=== PATIENT | female | born 1985 | race Caucasian/White ===

== ENCOUNTER 2016-05-08 11:11 | Emergency (ER) | payer OTHER, BC ==
[2016-05-08 11:35] VITALS: BP 100/65; PULSE 83; TEMP 98.1; BMI 25.6
[2016-05-08] MEDS ORDERED: DIPHTH,PERTUSS(ACELL),TET VAC 0.5 ML VIAL IM ONE (12:13)
--- NOTE | 2016-05-08 12:19 | PDOC ---
History of Present Illness - General Chief Complaint: Abrasion Stated Complaint: LT KNEE PAIN Time Seen by Provider: 05/08/16 12:04 History Source: Patient Exam Limitations: No Limitations - History of Present Illness Initial Comments: 05/08/16 12:14 31y F no pmhx presents with L knee pain. THe patient works for [employer], she was on the truck when it hit a few bumps and she got knocked off , and on the way to the ground, she clipped her b/l knees on the metal step. She landed on her feet, no falls/head injury or other complaints. denies head ache, neck pain, back pain, arm pain. pt endorses a abrasion to her L knee last tetenaus is unkonwn. Past History - Past Medical History Allergies/Adverse Reactions: Allergies Allergy/AdvReac Type Severity Reaction Status Date / Time Penicillins Allergy Verified 05/08/16 11:29 Home Medications: Ambulatory Orders Cholecalciferol (Vitamin D3) [Vitamin D3] 5,000 unit PO DAILY 07/23/15 Ranitidine HCl [Zantac] 150 mg PO DAILY #0 tablet 07/23/15 Asthma: Yes (NO ATTACK IN "YEARS") - Immunization History Td Vaccination: Yes Immunization Up to Date: Yes - Psycho/Social/Smoking Cessation Hx Anxiety: No Suicidal Ideation: No Smoking Status: No Smoking History: Former smoker Years of Tobacco Use: 0 Have you smoked in the past 12 months: No Number of Cigarettes Smoked Daily: 0 If you are a former smoker, when did you quit?: 3YEARS AGO Cigars Per Day: 0 Information on smoking cessation initiated: No Hx Alcohol Use: No Drug/Substance Use Hx: No Substance Use Type: None Hx Substance Use Treatment: No Review of Systems - Review of Systems Able to Perform ROS?: Yes Comments:: 05/08/16 12:17 Constitutional - no reported Fever, Chills, weakness, Musculskelatal - +L knee pain, mild R knee pain no reported back pain, joint swelling skin - + abrasion no reported bruising, erythema, rash neurological: no reported headache, numbness, focal weakness, tingling, ataxia, weakness hematologic: no reported anemia, easy bruising, easy bleeding Is the patient limited Kinyarwanda proficient: Yes *Physical Exam - Vital Signs Last Vital Signs Temp Pulse Resp BP Pulse Ox 98.1 F 83 19 100/65 98 05/08/16 11:31 05/08/16 11:31 05/08/16 11:31 05/08/16 11:31 05/08/16 11:31 - Physical Exam Comments: 05/08/16 12:18 Musculoskelatal: FROM of b/l shoulders, elbows, wrist. FROM of hips, knees, ankles - No signs of ecchymosis, erythema, or crepitus noted on palpation extremities, chest wall, clavicals, ribs, back. Minimal tenderness of L anterior knee and L proximal erickson, abrasion on anterior knee without active bleeding, superficial skin abrasion w/o bleeding of proximal erickson, minmal tenderness over that area. ED Treatment Course - RADIOLOGY Radiology Studies Ordered: Category Date Time Status KNEE 2 POS-LEFT [RAD] Stat Radiology 05/08/16 12:13 Ordered LEG TIB/FIB-LEFT [RAD] Stat Radiology 05/08/16 12:13 Ordered Medical Decision Making - Medical Decision Making 05/08/16 12:19 s/p fall mild tenderness of knee/erickson - will obtain xray to r/o fx will update tetanus pt declines tylenol no other injuries 05/08/16 13:21 xrays neagtive on my interpretation will d/c the pt with supportive management, bacitracin to her wounds return precautions wre discussed I discussed the physical exam findings, ancillary test results and final diagnoses with the patient. I answered all of the patient's questions. The patient was satisfied with the care received and felt comfortable with the discharge plan and treatment plan. The patient will call their primary care physician within 24 hours to arrange follow-up and will return to the Emergency Department with any new, persistent or worsening symptoms. *DC/Admit/Observation/Transfer Diagnosis at time of Disposition: Knee pain, left Qualifiers: Chronicity: acute Qualified Code(s): M25.562 - Pain in left knee Abrasion of knee Qualifiers: Encounter type: initial encounter Laterality: left Qualified Code(s): S80.212A - Abrasion, left knee, initial encounter - Discharge Dispostion Disposition: HOME Condition at time of disposition: Improved Admit: No - Referrals Referrals: STAFF,NOT ON [Primary Care Provider] - - Patient Instructions Printed Discharge Instructions: DI for Knee Pain, DI for Abrasion Additional Instructions: Return to the emergency department immediately with ANY new, persistent or worsening symptoms, watch for any redness/swelling. Put bacitracin on your wound twice daily. Clean gently with soap and water. You MUST call and follow up with your doctor tomorrow for further evaluation of your symptoms. Results were discussed with you. Please make sure your doctor reviews the results of your emergency evaluation. If you had any xrays during your visit, it was read preliminarily by myself, a Radiologist will review it and if there are any additional findings we will call you. Print Language: SPANISH
== END 2016-05-08 13:40 | disposition home or self-care (01) ==
LOC: JERFT 11:11 → JER 11:11
PROC: 3E0234Z Introduction of Serum, Toxoid and Vaccine into Muscle, Percutaneous Approach (ICD-10-PCS; principal; 2016-05-08)
DX: S80.212A Abrasion, left knee, initial encounter (principal); V68.6XXA Passenger in heavy transport vehicle injured in noncollision transport accident in traffic accident, initial encounter; Y92.414 Local residential or business street as the place of occurrence of the external cause; Y93.89 Activity, other specified; Y99.0 Civilian activity done for income or pay
CPT/HCPCS: 73560-TC-LT; 73560-TC-RT; 73590-TC-LT; 99282-25

== ENCOUNTER 2019-05-04 03:47 | Emergency (ER) | payer BC, OTHER ==
--- NOTE | 2019-05-04 04:52 | PDOC ---
Attending Attestation - Resident Resident Name: Dylan Ndiaye - ED Attending Attestation I have performed the following: I have examined & evaluated the patient, The case was reviewed & discussed with the resident, I agree w/resident's findings & plan - HPI HPI: 05/04/19 06:12 Pt comes with back pain. SHe states that she was [place] [employer] [place] and she tripped over boxes that were left out. She has low back pain and neck pain and she complains of left arm and left leg pain. She has no other complaints - Physicial Exam PE: 05/04/19 06:29 HEENT normal Heart [id number] abd soft NT ND Lungs CTAB no flank pain. Pt has left arm weakness and shakiness and left leg pain - Medical Decision Making 05/04/19 06:34 Pt will be treatd with lidoderm as well as flexeril. She doesn't want narcotics. 05/04/19 06:[address] scan of the c spine and L spine. T spine XR is pending. AM team will reevaluate the patient.
--- NOTE | 2019-05-04 05:09 | PDOC ---
History of Present Illness - General Stated Complaint: FALL (SUNDAY) Time Seen by Provider: 05/04/19 04:52 History Source: Patient Exam Limitations: No Limitations - History of Present Illness Initial Comments: 05/04/19 06:38 34 yo F with a hx of L4-5 fusion (with residual left UE and LE weakness) and asthma presents to the emergency department with acute on chronic back pain s/p fall [place] [employer] [place] 05[place]02/2019. Per the patient, she was in the supermarket and tripped over boxes left on the ground, landing on her back. She denies hitting her head and LOC. Per the patient, she tried to wait it off the pain and used meloxicam yesterday without relief. Currently, she is having pain in the middle of her lower back and worsening of her weakness on the left UE and LE. Past History - Past Medical History Allergies/Adverse Reactions: Allergies Allergy/AdvReac Type Severity Reaction Status Date / Time Penicillins Allergy Verified 05/08/16 11:29 Home Medications: Ambulatory Orders Cyclobenzaprine HCl 5 mg PO DAILY 05/04/19 Meloxicam [Mobic] 15 mg PO DAILY 05/04/19 Asthma: Yes (NO ATTACK IN "YEARS") - Immunization History Td Vaccination: Yes Immunization Up to Date: Yes - Psycho Social/Smoking Cessation Hx Smoking Status: No Smoking History: Former smoker Years of Tobacco Use: 0 Have you smoked in the past 12 months: No Number of Cigarettes Smoked Daily: 0 If you are a former smoker, when did you quit?: 3YEARS AGO Cigars Per Day: 0 Hx Alcohol Use: No Drug/Substance Use Hx: No Substance Use Type: None Hx Substance Use Treatment: No Review of Systems - Review of Systems Able to Perform ROS?: Yes Is the patient limited Polish proficient: No Constitutional: Yes: Weakness. No: Chills, Diaphoresis, Fever HEENTM: No: Eye Pain, Ear Pain, Nose Pain, Throat Pain, Mouth Pain Respiratory: No: Cough, Shortness of Breath, Hemoptysis Cardiac (ROS): No: Chest Pain, Lightheadedness, Palpitations, Syncope, Chest Tightness ABD/GI: No: Constipated, Diarrhea, Nausea, Rectal Bleeding, Vomiting, Tarry Stools : No: Burning, Dysuria, Hematuria Musculoskeletal: Yes: Back Pain. No: Joint Pain, Neck Pain Integumentary: No: Bruising, Erythema, Rash Neurological: No: Headache, Numbness, Tingling, Tremors Psychiatric: No: Change in Appetite Endocrine: No: Unexplained Weight Loss Hematologic/Lymphatic: No: Anemia *Physical Exam - Physical Exam General Appearance: Yes: Nourished, Appropriately Dressed. No: Apparent Distress, Intoxicated HEENT: positive: EOMI, GIOVANNA, Normal Voice, Symmetrical, Pharynx Normal, Hearing Grossly Normal. negative: Pale Conjunctivae, Scleral Icterus (R), Scleral Icterus (L), Muffled/Hoarse voice, Pharyngeal Erythema, Tonsillar Exudate, Tonsillar Erythema, Nasal Congestion, Rhinorrhea, Sinus Tenderness, Excessive drooling Neck: positive: Trachea midline, Supple, Tender lateral (paraspinal process of C5-C7), Tender midline (midline tenderness from C5-C7). negative: Lymphadenopathy (R), Lymphadenopathy (L) Respiratory/Chest: positive: Lungs Clear, Normal Breath Sounds. negative: Chest Tender, Respiratory Distress, Accessory Muscle Use, Crackles, Rales, Rhonchi, Stridor, Wheezing Cardiovascular: positive: Regular Rhythm, Regular Rate, S1, S2. negative: Systolic Murmur Gastrointestinal/Abdominal: positive: Normal Bowel Sounds, Flat, Soft. negative : Tender, Distended, Guarding, Rebound Lymphatic: negative: Adenopathy Musculoskeletal: positive: Normal Inspection, Vertebral Tenderness (L1-L5 midline tenderness. Tenderness to palpation in the paraspinal process from L1-L5 ). negative: CVA Tenderness Extremity: positive: Normal Capillary Refill, Normal Range of Motion. negative : Normal Inspection (chronic atrophy of the left leg most notable in the gastroc ), Tender, Swelling, Calf Tenderness, Erythema, Inflammation Integumentary: positive: Normal Color, Dry, Warm. 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 negative: Motor Strength 5/5 (4/5 strength in the left leg for hip flexion, hip extension, knee flexion, and knee extension. Intact patellar reflexes bilaterally) Medical Decision Making - Medical Decision Making 34 yo F with a hx of L4-5 fusion (with residual left UE and LE weakness) and asthma presents to the emergency department with acute on chronic back pain s/p fall at a [employer] on 05/02/2019. Initial vitals: Initial Vital Signs Temp Pulse Resp BP Pulse Ox 98.2 F 80 18 100/73 99 05/04/19 04:00 05/04/19 04:00 05/04/19 04:00 05/04/19 04:00 05/04/19 04:00 Work up: ddx: patient presents with acute on chronic back pain secondary to fall. on physical examination, patient has atrophy of the left leg per the patient is chronic. However, she described worsening muscle weakness in the left UE and LE s/p fall. In addition, the patient denies urinary and bowel incontinence POCUS shows 129 cc of volume in the bladder. Will provide lidoderm and flexeril (per patient request to avoid narcotics) to help with pain management. Will obtain imaging of the cervical and lumbar spine via CT to ascertain fractures. Will obtain thoracic xray Patient was signed out to day team. Discharge - Discharge Information Problems reviewed: Yes Clinical Impression/Diagnosis: Fall, Shoulder pain Back pain Qualifiers: Back pain location: low back pain Chronicity: chronic Back pain laterality: unspecified Sciatica presence: without sciatica Qualified Code(s): M54.5 - Low back pain - Follow up/Referral Referrals: Rodney Harris MD, FAANS [Staff Physician] - Lenny Navarro DO [Staff Physician] - - Patient Discharge Instructions Patient Printed Discharge Instructions: DI for Low Back Pain Additional Instructions: Discharge Instructions: You were seen in the emergency department for back pain. Your CT scans showed that you may need revision of your previous back surgery. Please see your orthopedic surgeon as soon as possible. Home Care and Follow Up: - Continue to use your home meloxicam as prescribed. - You may also take 650-1000mg acetaminophen (Tylenol) every 6-8 hours for continued pain. This is safe to use with meloxicam. - You may buy a numbing patch that contains lidocaine (the patch is 4% lidocaine ) that can be placed over the areas of greatest pain. The lidocaine patch may be placed for 12 hours then removed for 12 hours. - Try using an ice pack for 20 minutes every hour or a heating pad for additional pain control. These should NOT be used over the lidocaine patch, but you may place them over the areas of pain while the patch is off. - Do not stop moving around. As much as you can tolerate, continue to do light exercise and stretching exercises. Increase your activity level as much as you can tolerate daily. - See your orthopedic surgeon within the next week for follow up. If you need a new surgeon, you have been given contact information for Dr Harris. - Seek immediate medical care if you have significant worsening of your symptoms , you have new leg weakness, you have urinary or bowel incontinence, you have numbness in your buttocks, you are unable to walk, or you have any other medical emergency. - Post Discharge Activity
[2019-05-04] MEDS ORDERED: LIDOCAINE 5% TOPICAL PATCH TP ONE (05:12)
[2019-05-04] MEDS ORDERED: CYCLOBENZAPRINE HCL 5 MG TABLET PO ONE (05:12)
[2019-05-04 06:05] VITALS: TEMP 98.2; BMI 28.1
[2019-05-04] MEDS ORDERED: CYCLOBENZAPRINE HCL 10 MG TABLET (FP) ONE (06:08)
[2019-05-04] MEDS ORDERED: LIDOCAINE 5% TOPICAL PATCH ONE (06:09)
--- NOTE | 2019-05-04 07:11 | PDOC ---
*Physical Exam - Vital Signs Last Vital Signs Temp Pulse Resp BP Pulse Ox 98.2 F 80 18 100/73 99 05/04/19 04:00 05/04/19 04:00 05/04/19 04:00 05/04/19 04:00 05/04/19 04:00 - Physical Exam 05/04/19 08:47 gen: aaox3, nad, sitting up heart: +s1s2 reg lungs: cta b/l abd: soft, nt/nd +bs ext: no c/c/e, pt ambulates with a limp-does wear a leg brace and was walking witout the brace c/t/l spine: no midline ttp, paraspinal ttp, no cva ttp, no stepoffs or deformities 05/04/19 08:52 pt with FROM of [facility] shoulder ED Treatment Course - Medications Given in the ED: ED Medications Discontinued Medications Generic Name Dose Route Start Last Admin Trade Name Freq PRN Reason Stop Dose Admin Cyclobenzaprine HCl 5 mg 05/04/19 05:12 05/04/19 06:00 Cyclobenzaprine Hcl PO 05/04/19 05:13 5 mg ONCE ONE Administration Lidocaine 1 patch 05/04/19 05:12 05/04/19 06:00 Lidoderm Patch - TP 05/04/19 05:13 1 patch ONCE ONE Administration Medical Decision Making - Medical Decision Making 05/04/19 07:08 a/p: 34yo female s/p fall on sunday -pt signed out from the prior team pending labs, imaging and further eval 05/04/19 07:30 urine preg neg 05/04/19 08:50 ct does not show acute injury , there is some bone breakdown around the hardware in low back this was discussed and a copy of [facility] imaging/report were given to the patient for follow up with ortho spine pt understands all instructions states she feels better after flexeril and lidoderm stable for dc to home and follow up with ortho spine at [facility] Discharge - Discharge Information Problems reviewed: Yes Clinical Impression/Diagnosis: Fall, Shoulder pain Back pain Qualifiers: Back pain location: low back pain Chronicity: chronic Back pain laterality: unspecified Sciatica presence: without sciatica Qualified Code(s): M54.5 - Low back pain Condition: Stable Disposition: HOME - Admission No - Follow up/Referral Referrals: Lenny Navarro DO [Staff Physician] - - Patient Discharge Instructions - Post Discharge Activity
--- NOTE | 2019-05-04 07:15 | PDOC ---
*Physical Exam - Vital Signs Last Vital Signs Temp Pulse Resp BP Pulse Ox 98.2 F 80 18 100/73 99 05/04/19 04:00 05/04/19 04:00 05/04/19 04:00 05/04/19 04:00 05/04/19 04:00 ED Treatment Course - Medications Given in the ED: ED Medications Discontinued Medications Generic Name Dose Route Start Last Admin Trade Name Oz PRN Reason Stop Dose Admin Cyclobenzaprine HCl 5 mg 05/04/19 05:12 05/04/19 06:00 Cyclobenzaprine Hcl PO 05/04/19 05:13 5 mg ONCE ONE Administration Lidocaine 1 patch 05/04/19 05:12 05/04/19 06:00 Lidoderm Patch - TP 05/04/19 05:13 1 patch ONCE ONE Administration Medical Decision Making - Medical Decision Making 05/04/19 07:13 Sign out received from Dr Ndiaye. Shelby Avendaño is a 34yo woman with a PMH of asthma, L4-5 fusion with residual LUE and LLE weakness who presented overnight with acute on chronic back pain after falling on 05/02/19. ED course so far notable for: - Flexeril and lidocaine patch given for pain - CT L and C-spine completed, pending - Thoracic xrays to be completed 05/04/19 08:43 - CT's completed. No acute injury, but notes loosening of the surgical hardware and bone breakdown. Pt updated, will see her orthopedic surgeon this week. Pt provided with copies of the images. - Thoracic xrays without acute abnormalities seen on ED read - Will d/c home with ortho follow up pending final xray report Discussed with Dr Álvaro Shearer PGY2 Discharge - Discharge Information Problems reviewed: Yes Clinical Impression/Diagnosis: Fall, Shoulder pain Back pain Qualifiers: Back pain location: low back pain Chronicity: chronic Back pain laterality: unspecified Sciatica presence: without sciatica Qualified Code(s): M54.5 - Low back pain Condition: Stable Disposition: HOME - Admission No - Follow up/Referral Referrals: Rodney Harris MD, FAANS [Staff Physician] - Lenny Navaror DO [Staff Physician] - - Patient Discharge Instructions Patient Printed Discharge Instructions: DI for Low Back Pain Additional Instructions: Discharge Instructions: You were seen in the emergency department for back pain. Your CT scans showed that you may need revision of your previous back surgery. Please see your orthopedic surgeon as soon as possible. Home Care and Follow Up: - Continue to use your home meloxicam as prescribed. - You may also take 650-1000mg acetaminophen (Tylenol) every 6-8 hours for continued pain. This is safe to use with meloxicam. - You may buy a numbing patch that contains lidocaine (the patch is 4% lidocaine ) that can be placed over the areas of greatest pain. The lidocaine patch may be placed for 12 hours then removed for 12 hours. - Try using an ice pack for 20 minutes every hour or a heating pad for additional pain control. These should NOT be used over the lidocaine patch, but you may place them over the areas of pain while the patch is off. - Do not stop moving around. As much as you can tolerate, continue to do light exercise and stretching exercises. Increase your activity level as much as you can tolerate daily. - See your orthopedic surgeon within the next week for follow up. If you need a new surgeon, you have been given contact information for Dr Harris. - Seek immediate medical care if you have significant worsening of your symptoms , you have new leg weakness, you have urinary or bowel incontinence, you have numbness in your buttocks, you are unable to walk, or you have any other medical emergency. - Post Discharge Activity
[2019-05-04] MEDS ORDERED: IBUPROFEN 600 MG TABLET (FP) PO ONE (08:39)
[2019-05-04] MEDS ORDERED: KETOROLAC TROMETHAMINE 60 MG/2 ML VIAL IM ONE (08:45)
[2019-05-04] MEDS ORDERED: KETOROLAC TROMETHAMINE 60 MG/2 ML VIAL ONE (08:59)
[2019-05-04 09:45] VITALS: BP 101/82; PULSE 85
[2019-05-04] MEDS ORDERED: LIDOCAINE PATCH REMOVAL MC SCH (22:00)
== END 2019-05-04 09:45 | disposition home or self-care (01) ==
LOC: JER 03:47
PROC: 3E0233Z Introduction of Anti-inflammatory into Muscle, Percutaneous Approach (ICD-10-PCS; principal; 2019-05-04)
DX: M54.5 Low back pain (principal); M25.512 Pain in left shoulder; W18.39XA Other fall on same level, initial encounter; Y93.89 Activity, other specified; Y92.512 Supermarket, store or market as the place of occurrence of the external cause; Y99.8 Other external cause status; M62.569 Muscle wasting and atrophy, not elsewhere classified, unspecified lower leg; Z98.1 Arthrodesis status; Z88.0 Allergy status to penicillin
CPT/HCPCS: 36415; 72070-TC-FY; 72125-TC; 72131-TC; 84703; 99282-25

== ENCOUNTER 2021-09-20 13:17 | Inpatient (IN) | payer BC ==
[2021-09-20] MEDS ORDERED: morphine CARPU-JECT 4 MG/1 ML DISP.SYRIN IVPUSH ONE (14:28)
[2021-09-20] MEDS ORDERED: methylPREDNISolone NA SUCC 125 MG/2 ML VIAL IVPB ONE (14:35)
[2021-09-20 15:53] LABS: EOS % 2.7 % (0-4.5); HEMATOCRIT 41.1 % (32.4-45.2); HEMOGLOBIN 13.9 GM/dL (10.7-15.3); LYMPH % 30.1 % (8-40); MCH 28.9 pg (25.7-33.7); MCHC 33.8 g/dl (32.0-36.0); MEAN CELL VOLUME 85.5 fl (80-96); MEAN PLT VOLUME 7.8 fl (7.5-11.1); MONO % 5.9 % (3.8-10.2); NEUT % 60.3 % (42.8-82.8); PLATELET COUNT 294 10^3/uL (134-434); RBC 4.81 M/mm3 (3.60-5.2); RDW 13.1 % (11.6-15.6); WHITE BLOOD COUNT 6.4 K/mm3 (4.0-10.0)
[2021-09-20 16:03] LABS: INR 1.03 (0.83-1.09); PROTHROMBIN TIME (PATIENT) 11.9 SEC (9.7-13.0)
[2021-09-20 16:11] LABS: CHLORIDE 102 mmol/L (98-107); SODIUM 136 mmol/L (136-145)
[2021-09-20 16:13] LABS: CALCIUM 9.3 mg/dL (8.5-10.1); GLUCOSE,RANDOM 74 mg/dL (74-106)
[2021-09-20 16:14] LABS: ALBUMIN 4.2 g/dl (3.4-5.0); BLOOD UREA NITROGEN 8.4 mg/dL (7-18); CO2 29 mmol/L (21-32)
[2021-09-20 16:16] LABS: SGPT/ALT 41 U/L (13-61)
[2021-09-20 16:17] LABS: CREATININE 0.9 mg/dL (0.55-1.3); SGOT/AST 60 U/L (15-37)
[2021-09-20 16:18] LABS: BILIRUBIN,TOTAL 1.1 mg/dL (0.2-1); TOT PROT 8.8 g/dl (6.4-8.2)
[2021-09-20 16:19] LABS: ALK PHOS 77 U/L (45-117)
[2021-09-20 16:24] LABS: ANION GAP 5 MMOL/L (8-16)
[2021-09-20 16:34] LABS: ERYTHROCYTE SEDIMENTATION RATE 14 mm/hr (0-20)
[2021-09-20 18:30] LABS: EPI CELLS 8 /uL (0-25.1); HCG,QUALITATIVE URINE Negative; HYALINE CASTS 1 /uL (0-3.1); URINE APPEARANCE CLEAR; URINE BACTERIA 359 /uL (0-1359); URINE BILIRUBIN NEGATIVE (NEGATIVE); URINE COLOR YELLOW; URINE GLUCOSE (UA) NEGATIVE (NEGATIVE); URINE KETONE TRACE (NEGATIVE); URINE LEUK ESTERASE NEGATIVE (NEGATIVE); URINE NITRITE NEGATIVE (NEGATIVE); URINE PROTEIN NEGATIVE (NEGATIVE); URINE RBC 7 /uL (0-23.9); URINE UROBILINOGEN 0.2 mg/dL (0.2-1.0); URINE WBC 7 /uL (0-25.8)
[2021-09-20 19:01] LABS: ALBUMIN 3.9 g/dl (3.4-5.0); BLOOD UREA NITROGEN 9.1 mg/dL (7-18)
[2021-09-20 19:05] LABS: CREATININE 0.8 mg/dL (0.55-1.3)
[2021-09-20 19:06] LABS: BILIRUBIN,TOTAL 0.8 mg/dL (0.2-1); TOT PROT 7.6 g/dl (6.4-8.2)
[2021-09-20] MEDS ORDERED: KETOROLAC TROMETHAMINE 30 MG/1 ML VIAL IVPUSH ONE (20:37)
[2021-09-20] MEDS ORDERED: morphine CARPU-JECT 2 MG/1 ML DISP.SYRIN IVPUSH ONE (20:38)
[2021-09-20] MEDS ORDERED: KETOROLAC TROMETHAMINE 30 MG/1 ML VIAL ONE (22:50)
[2021-09-21] MEDS ORDERED: ENOXAPARIN NA (PORCINE) 40 MG/0.4 ML DISP.SYRIN SQ ONE (10:15)
[2021-09-21] MEDS: ENOXAPARIN NA (PORCINE) 40 MG/0.4 ML DISP.SYRIN SQ SCH (10:25)
[2021-09-21] MEDS ORDERED: methylPREDNISolone NA SUCC 125 MG/2 ML VIAL IVPB ONE (17:28)
[2021-09-21 18:01] VITALS: BMI 28.9
[2021-09-22 08:40] LABS: BASO % 0.7 % (0-2.0); EOS % 2.7 % (0-4.5); HEMATOCRIT 35.4 % (32.4-45.2); HEMOGLOBIN 12.2 GM/dL (10.7-15.3); LYMPH % 40.5 % (8-40); MCH 29.3 pg (25.7-33.7); MCHC 34.4 g/dl (32.0-36.0); MEAN PLT VOLUME 7.7 fl (7.5-11.1); MONO % 7.2 % (3.8-10.2); NEUT % 48.9 % (42.8-82.8); PLATELET COUNT 260 10^3/uL (134-434); RBC 4.16 M/mm3 (3.60-5.2); WHITE BLOOD COUNT 5.9 K/mm3 (4.0-10.0)
[2021-09-22 08:58] LABS: ALBUMIN 3.3 g/dl (3.4-5.0); BLOOD UREA NITROGEN 14.1 mg/dL (7-18); CALCIUM 8.7 mg/dL (8.5-10.1)
[2021-09-22 08:59] LABS: MAGNESIUM 2.1 mg/dL (1.8-2.4)
[2021-09-22 09:01] LABS: CREATININE 0.7 mg/dL (0.55-1.3)
[2021-09-22 09:03] LABS: TOT PROT 6.6 g/dl (6.4-8.2)
[2021-09-22] MEDS: ENOXAPARIN NA (PORCINE) 40 MG/0.4 ML DISP.SYRIN SQ SCH (09:31)
[2021-09-22] MEDS: GABAPENTIN 300 MG CAPSULE PO SCH ×2 (10:10→21:08)
[2021-09-22] MEDS: ACETAMINOPHEN 325 MG TABLET (FP) PO PRN ×2 (10:10→14:56)
[2021-09-22] MEDS: oxyCODONE HCL 5 MG TABLET PO PRN ×3 (10:11→21:29)
[2021-09-22] MEDS: methylPREDNISolone NA SUCC 125 MG/2 ML VIAL IVPUSH SCH ×2 (11:47→21:08)
[2021-09-22] MEDS: FAMOTIDINE 20 MG TABLET PO SCH (11:48)
[2021-09-22] MEDS: CYCLOBENZAPRINE HCL 5 MG TABLET PO PRN ×2 (14:55→21:29)
[2021-09-23] MEDS: FAMOTIDINE 20 MG TABLET PO SCH (09:01)
[2021-09-23] MEDS: ENOXAPARIN NA (PORCINE) 40 MG/0.4 ML DISP.SYRIN SQ SCH (09:01)
[2021-09-23] MEDS: GABAPENTIN 300 MG CAPSULE PO SCH ×2 (09:01→22:26)
[2021-09-23] MEDS: methylPREDNISolone NA SUCC 125 MG/2 ML VIAL IVPUSH SCH ×2 (09:01→22:26)
[2021-09-23] MEDS ORDERED: VANCOMYCIN 1,000 MG VIAL (RESTRICTED TO ID ONLY) ONE (09:40)
[2021-09-23] MEDS ORDERED: THROMBIN (BOVINE) 20,000 UNIT VIAL TP ONE (09:40)
[2021-09-23] MEDS ORDERED: GENTAMICIN SO4 80 MG/2 ML VIAL ONE (09:41)
[2021-09-23] MEDS ORDERED: LIDOCAINE 1%/EPI 1:100000 (20 ML MULTI DOSE VIAL) ONE (09:41)
[2021-09-23] MEDS ORDERED: BUPIVACAINE HCL/PF 0.5% (5MG/ML) 10 ML VIAL ONE (09:41)
[2021-09-23] MEDS ORDERED: BUPIVACAINE LIPOSOME/PF (EXPAREL) 266 MG/20 ML VIAL ONE (09:42)
[2021-09-23] MEDS ORDERED: MIDAZOLAM HCL 2 MG/2 ML SINGLE DOSE VIAL ONE (09:50)
[2021-09-23] MEDS ORDERED: PROPOFOL 20 ML ONE (09:50)
[2021-09-23] MEDS ORDERED: LIDOCAINE HCL/PF 2% SDV 5ML VIAL ONE (09:50)
[2021-09-23] MEDS ORDERED: ROCURONIUM BROMIDE 50 MG/5 ML SYRINGE ONE ×2 (09:50→11:16)
[2021-09-23] MEDS ORDERED: SUCCINYLCHOLINE CHLORIDE 200 MG/10 ML SYRINGE ONE (10:14)
[2021-09-23] MEDS ORDERED: ONDANSETRON 4 MG/2 ML VIAL IVPUSH PRN ×3 (10:22→16:13)
[2021-09-23] MEDS ORDERED: PROMETHAZINE HCL 25 MG/1 ML VIAL IVPUSH PRN (10:22)
[2021-09-23] MEDS ORDERED: DEXMEDETOMIDINE HCL 200 MCG/2 ML IVPB ONE (10:25)
[2021-09-23] MEDS ORDERED: LACTATED RINGERS SOLUTION 1,000 ML IV SCH (10:30)
[2021-09-23] MEDS ORDERED: ceFAZolin SODIUM 1 GM VIAL IVPB ONE ×3 (11:12→17:30)
[2021-09-23] MEDS ORDERED: VANCOMYCIN 1,000 MG VIAL (RESTRICTED TO ID ONLY) IVPB ONE ×3 (11:12→11:42)
[2021-09-23] MEDS ORDERED: LIDOCAINE 1%/EPI 1:100000 (20 ML MULTI DOSE VIAL) IJ ONE (11:28)
[2021-09-23] MEDS ORDERED: KETAMINE HCL 200 MG/20 ML VIAL ONE (11:39)
[2021-09-23] MEDS ORDERED: GENTAMICIN 80MG PREMIX BAG IVPB ONE (11:43)
[2021-09-23] MEDS ORDERED: HYDROGEN PEROXIDE 473 ML PO ONE (11:44)
[2021-09-23] MEDS ORDERED: HYDROmorphone HCl 2 MG/ML VIAL ONE (11:45)
[2021-09-23] MEDS ORDERED: diphenhydrAMINE HCL 25 MG CAPSULE (FP) PO PRN (14:44)
[2021-09-23] MEDS ORDERED: NALOXONE HCL 0.4 MG/ML VIAL IVPUSH PRN (14:47)
[2021-09-23] MEDS ORDERED: NEOSTIGMINE METHYLSULFATE 0.5 MG/1 ML - 10 ML MDV ONE (14:52)
[2021-09-23] MEDS ORDERED: BUPIVACAINE HCL/PF 0.5% (5 MG/ML) 30 ML VIAL IJ ONE (15:00)
[2021-09-23] MEDS ORDERED: BUPIVACAINE LIPOSOME/PF (EXPAREL) 266 MG/20 ML VIAL NR ONE (15:00)
[2021-09-23] MEDS ORDERED: GLYCOPYRROLATE 0.2 MG/1 ML VIAL ONE (15:44)
[2021-09-23] MEDS ORDERED: morphine SULFATE/PF 1 MG/2 ML (2cc Syringe - QUVA) EP ONE (16:13)
[2021-09-23] MEDS ORDERED: ceFAZolin SODIUM 1 GM VIAL ONE (17:18)
[2021-09-23] MEDS: CEFAZOLIN 1 GM in DEXTROSE 5%-WATER - 1 GM/50 ML IVPB IVPB SCH (19:22)
[2021-09-23] MEDS: HEPARIN NA (PORCINE) 5,000 UNITS/ML 1ML VIAL SQ SCH (22:25)
[2021-09-23] MEDS: ACETAMINOPHEN 325 MG TABLET (FP) PO SCH (22:25)
[2021-09-23] MEDS: DOCUSATE SODIUM 100 MG CAPSULE (FP) PO SCH (22:25)
[2021-09-24] MEDS ORDERED: ceFAZolin SODIUM 1 GM VIAL ONE ×3 (01:32→17:22)
[2021-09-24] MEDS ORDERED: DEXTROSE 5%-WATER - 50 ML IVPB ONE ×3 (01:33→17:22)
[2021-09-24] MEDS: CEFAZOLIN 1 GM in DEXTROSE 5%-WATER - 1 GM/50 ML IVPB IVPB SCH ×3 (01:49→17:34)
[2021-09-24] MEDS: ACETAMINOPHEN 325 MG TABLET (FP) PO SCH ×5 (03:35→21:41)
[2021-09-24] MEDS: DOCUSATE SODIUM 100 MG CAPSULE (FP) PO SCH ×3 (05:59→21:40)
[2021-09-24] MEDS: HEPARIN NA (PORCINE) 5,000 UNITS/ML 1ML VIAL SQ SCH ×3 (06:00→21:37)
[2021-09-24] MEDS: CYCLOBENZAPRINE HCL 5 MG TABLET PO PRN (08:07)
[2021-09-24 08:45] LABS: HEMATOCRIT 33.1 % (32.4-45.2); HEMOGLOBIN 11.3 GM/dL (10.7-15.3); MCH 29.1 pg (25.7-33.7); MEAN CELL VOLUME 85.5 fl (80-96); MEAN PLT VOLUME 7.8 fl (7.5-11.1); PLATELET COUNT 250 10^3/uL (134-434); RBC 3.87 M/mm3 (3.60-5.2); RDW 13.4 % (11.6-15.6); WHITE BLOOD COUNT 14.6 K/mm3 (4.0-10.0)
[2021-09-24] MEDS: FERROUS SO4 325 MG TABLET (FP) PO SCH (08:45)
[2021-09-24 09:14] LABS: ALBUMIN 3.4 g/dl (3.4-5.0); BLOOD UREA NITROGEN 11.9 mg/dL (7-18)
[2021-09-24 09:17] LABS: CREATININE 0.8 mg/dL (0.55-1.3)
[2021-09-24 09:18] LABS: TOT PROT 6.5 g/dl (6.4-8.2)
[2021-09-24 09:19] LABS: BILIRUBIN,TOTAL 0.4 mg/dL (0.2-1)
[2021-09-24 09:22] LABS: ANISOCYTOSIS 0; MACROCYTOSIS 0
[2021-09-24] MEDS: methylPREDNISolone NA SUCC 125 MG/2 ML VIAL IVPUSH SCH ×2 (09:42→21:35)
[2021-09-24] MEDS: GABAPENTIN 300 MG CAPSULE PO SCH ×2 (09:42→21:40)
[2021-09-24] MEDS: FAMOTIDINE 20 MG TABLET PO SCH (09:42)
[2021-09-24] MEDS: FOLIC ACID 1 MG TABLET (FP) PO SCH (09:42)
[2021-09-24] MEDS: oxyCODONE HCL 5 MG TABLET PO PRN (10:30)
[2021-09-24] MEDS ORDERED: oxyCODONE HCL 5 MG TABLET PO PRN (10:30)
[2021-09-24] MEDS: oxyCODONE HCL 10 MG SUSTAINED ACTING TABLET PO SCH ×2 (16:14→21:41)
[2021-09-25] MEDS ORDERED: DEXTROSE 5%-WATER - 50 ML IVPB ONE ×3 (01:26→17:19)
[2021-09-25] MEDS ORDERED: ceFAZolin SODIUM 1 GM VIAL ONE ×3 (01:26→17:19)
[2021-09-25] MEDS: ACETAMINOPHEN 325 MG TABLET (FP) PO SCH ×4 (02:33→20:33)
[2021-09-25] MEDS: CEFAZOLIN 1 GM in DEXTROSE 5%-WATER - 1 GM/50 ML IVPB IVPB SCH ×3 (02:33→17:30)
[2021-09-25] MEDS: HEPARIN NA (PORCINE) 5,000 UNITS/ML 1ML VIAL SQ SCH ×3 (06:38→22:42)
[2021-09-25] MEDS: DOCUSATE SODIUM 100 MG CAPSULE (FP) PO SCH ×3 (06:38→22:42)
[2021-09-25 07:36] LABS: BASO % 0.1 % (0-2.0); HEMATOCRIT 31.4 % (32.4-45.2); HEMOGLOBIN 10.9 GM/dL (10.7-15.3); LYMPH % 6.7 % (8-40); MCH 29.8 pg (25.7-33.7); MCHC 34.9 g/dl (32.0-36.0); MEAN CELL VOLUME 85.6 fl (80-96); MEAN PLT VOLUME 8.4 fl (7.5-11.1); MONO % 2.6 % (3.8-10.2); NEUT % 90.6 % (42.8-82.8); PLATELET COUNT 255 10^3/uL (134-434); RBC 3.67 M/mm3 (3.60-5.2); RDW 13.4 % (11.6-15.6); WHITE BLOOD COUNT 11.3 K/mm3 (4.0-10.0)
[2021-09-25 08:00] LABS: ALBUMIN 3.3 g/dl (3.4-5.0)
[2021-09-25 08:03] LABS: CALCIUM 8.9 mg/dL (8.5-10.1); CREATININE 0.7 mg/dL (0.55-1.3)
[2021-09-25 08:04] LABS: TOT PROT 6.3 g/dl (6.4-8.2)
[2021-09-25 08:06] LABS: BILIRUBIN,TOTAL 0.6 mg/dL (0.2-1)
[2021-09-25] MEDS: oxyCODONE HCL 10 MG SUSTAINED ACTING TABLET PO SCH ×2 (09:43→22:43)
[2021-09-25] MEDS: FERROUS SO4 325 MG TABLET (FP) PO SCH (09:43)
[2021-09-25] MEDS: FOLIC ACID 1 MG TABLET (FP) PO SCH (09:43)
[2021-09-25] MEDS: GABAPENTIN 300 MG CAPSULE PO SCH ×2 (09:45→22:42)
[2021-09-25] MEDS: methylPREDNISolone NA SUCC 125 MG/2 ML VIAL IVPUSH SCH ×2 (09:46→22:44)
[2021-09-25] MEDS: FAMOTIDINE 20 MG TABLET PO SCH (09:55)
[2021-09-25] MEDS: CYCLOBENZAPRINE HCL 5 MG TABLET PO PRN (19:35)
[2021-09-25] MEDS: oxyCODONE HCL 5 MG TABLET PO PRN (19:50)
[2021-09-25] MEDS ORDERED: morphine SULFATE 4 MG/ML VIAL ONE (21:24)
[2021-09-25] MEDS ORDERED: morphine SULFATE 4 MG/ML VIAL IVPUSH ONE (21:24)
[2021-09-26] MEDS ORDERED: DEXTROSE 5%-WATER - 50 ML IVPB ONE ×3 (02:20→18:08)
[2021-09-26] MEDS ORDERED: ceFAZolin SODIUM 1 GM VIAL ONE ×3 (02:20→18:08)
[2021-09-26] MEDS: CEFAZOLIN 1 GM in DEXTROSE 5%-WATER - 1 GM/50 ML IVPB IVPB SCH ×3 (02:25→18:40)
[2021-09-26] MEDS: ACETAMINOPHEN 325 MG TABLET (FP) PO SCH ×4 (02:27→20:10)
[2021-09-26] MEDS: DOCUSATE SODIUM 100 MG CAPSULE (FP) PO SCH ×3 (05:58→21:47)
[2021-09-26] MEDS: HEPARIN NA (PORCINE) 5,000 UNITS/ML 1ML VIAL SQ SCH ×3 (05:58→21:47)
[2021-09-26] MEDS: oxyCODONE HCL 5 MG TABLET PO PRN ×3 (06:38→17:50)
[2021-09-26] MEDS: FERROUS SO4 325 MG TABLET (FP) PO SCH (08:10)
[2021-09-26 08:19] LABS: BASO % 0.1 % (0-2.0); HEMATOCRIT 32.9 % (32.4-45.2); HEMOGLOBIN 11.4 GM/dL (10.7-15.3); MCH 29.6 pg (25.7-33.7); MCHC 34.6 g/dl (32.0-36.0); MEAN CELL VOLUME 85.4 fl (80-96); MEAN PLT VOLUME 7.8 fl (7.5-11.1); MONO % 2.7 % (3.8-10.2); NEUT % 87.2 % (42.8-82.8); PLATELET COUNT 269 10^3/uL (134-434); RBC 3.85 M/mm3 (3.60-5.2); RDW 13.2 % (11.6-15.6); WHITE BLOOD COUNT 9.1 K/mm3 (4.0-10.0)
[2021-09-26 09:32] LABS: CALCIUM 8.9 mg/dL (8.5-10.1)
[2021-09-26] MEDS: FOLIC ACID 1 MG TABLET (FP) PO SCH (09:32)
[2021-09-26] MEDS: FAMOTIDINE 20 MG TABLET PO SCH (09:32)
[2021-09-26] MEDS: GABAPENTIN 300 MG CAPSULE PO SCH ×2 (09:32→21:20)
[2021-09-26] MEDS: oxyCODONE HCL 10 MG SUSTAINED ACTING TABLET PO SCH ×2 (09:32→21:19)
[2021-09-26 09:33] LABS: ALBUMIN 3.3 g/dl (3.4-5.0); BLOOD UREA NITROGEN 12.5 mg/dL (7-18)
[2021-09-26] MEDS: methylPREDNISolone NA SUCC 125 MG/2 ML VIAL IVPUSH SCH ×2 (09:33→21:21)
[2021-09-26 09:36] LABS: CREATININE 0.7 mg/dL (0.55-1.3)
[2021-09-26 09:37] LABS: TOT PROT 6.5 g/dl (6.4-8.2)
[2021-09-26 09:38] LABS: BILIRUBIN,TOTAL 0.3 mg/dL (0.2-1)
[2021-09-26] MEDS: CYCLOBENZAPRINE HCL 5 MG TABLET PO PRN ×2 (12:25→20:11)
[2021-09-27] MEDS ORDERED: DEXTROSE 5%-WATER - 50 ML IVPB ONE ×3 (01:59→17:24)
[2021-09-27] MEDS ORDERED: ceFAZolin SODIUM 1 GM VIAL ONE ×3 (01:59→17:24)
[2021-09-27] MEDS: CEFAZOLIN 1 GM in DEXTROSE 5%-WATER - 1 GM/50 ML IVPB IVPB SCH ×3 (02:04→17:47)
[2021-09-27] MEDS: ACETAMINOPHEN 325 MG TABLET (FP) PO SCH ×4 (04:33→21:44)
[2021-09-27] MEDS: oxyCODONE HCL 5 MG TABLET PO PRN (05:15)
[2021-09-27] MEDS: CYCLOBENZAPRINE HCL 5 MG TABLET PO PRN ×2 (05:15→17:47)
[2021-09-27] MEDS: HEPARIN NA (PORCINE) 5,000 UNITS/ML 1ML VIAL SQ SCH ×3 (05:16→21:45)
[2021-09-27] MEDS: DOCUSATE SODIUM 100 MG CAPSULE (FP) PO SCH ×3 (05:16→21:45)
[2021-09-27 08:07] LABS: BASO % 0.1 % (0-2.0); HEMATOCRIT 32.7 % (32.4-45.2); HEMOGLOBIN 11.5 GM/dL (10.7-15.3); LYMPH % 11.1 % (8-40); MCH 29.8 pg (25.7-33.7); MCHC 35.1 g/dl (32.0-36.0); MEAN PLT VOLUME 7.9 fl (7.5-11.1); MONO % 4.1 % (3.8-10.2); NEUT % 84.7 % (42.8-82.8); PLATELET COUNT 274 10^3/uL (134-434); RBC 3.85 M/mm3 (3.60-5.2); RDW 13.3 % (11.6-15.6); WHITE BLOOD COUNT 10.5 K/mm3 (4.0-10.0)
[2021-09-27 08:30] LABS: ALBUMIN 3.2 g/dl (3.4-5.0); BLOOD UREA NITROGEN 14.2 mg/dL (7-18); CALCIUM 8.9 mg/dL (8.5-10.1)
[2021-09-27 08:31] LABS: CREATININE 0.7 mg/dL (0.55-1.3)
[2021-09-27 08:32] LABS: BILIRUBIN,TOTAL 0.3 mg/dL (0.2-1); TOT PROT 6.4 g/dl (6.4-8.2)
[2021-09-27] MEDS: FAMOTIDINE 20 MG TABLET PO SCH (09:37)
[2021-09-27] MEDS: FERROUS SO4 325 MG TABLET (FP) PO SCH (09:37)
[2021-09-27] MEDS: FOLIC ACID 1 MG TABLET (FP) PO SCH (09:37)
[2021-09-27] MEDS: oxyCODONE HCL 10 MG SUSTAINED ACTING TABLET PO SCH ×2 (09:37→21:45)
[2021-09-27] MEDS: GABAPENTIN 300 MG CAPSULE PO SCH ×2 (09:37→21:45)
[2021-09-27] MEDS: methylPREDNISolone NA SUCC 125 MG/2 ML VIAL IVPB SCH ×2 (09:41→22:04)
[2021-09-28] MEDS ORDERED: ceFAZolin SODIUM 1 GM VIAL ONE ×3 (01:37→16:42)
[2021-09-28] MEDS ORDERED: DEXTROSE 5%-WATER - 50 ML IVPB ONE ×3 (01:37→16:42)
[2021-09-28] MEDS: CEFAZOLIN 1 GM in DEXTROSE 5%-WATER - 1 GM/50 ML IVPB IVPB SCH ×3 (01:40→17:48)
[2021-09-28] MEDS ORDERED: morphine SULFATE 4 MG/ML VIAL IVPUSH ONE (01:44)
[2021-09-28] MEDS: ACETAMINOPHEN 325 MG TABLET (FP) PO SCH ×4 (03:01→21:27)
[2021-09-28] MEDS: DOCUSATE SODIUM 100 MG CAPSULE (FP) PO SCH ×3 (05:43→21:27)
[2021-09-28] MEDS: HEPARIN NA (PORCINE) 5,000 UNITS/ML 1ML VIAL SQ SCH ×3 (05:44→21:25)
[2021-09-28] MEDS: oxyCODONE HCL 20 MG SUSTAINED ACTING TABLET PO SCH ×2 (09:28→21:26)
[2021-09-28] MEDS: FERROUS SO4 325 MG TABLET (FP) PO SCH (09:28)
[2021-09-28] MEDS: FAMOTIDINE 20 MG TABLET PO SCH (09:28)
[2021-09-28] MEDS: FOLIC ACID 1 MG TABLET (FP) PO SCH (09:28)
[2021-09-28] MEDS: GABAPENTIN 300 MG CAPSULE PO SCH ×2 (09:28→21:27)
[2021-09-28] MEDS: methylPREDNISolone NA SUCC 125 MG/2 ML VIAL IVPB SCH ×2 (11:16→21:25)
[2021-09-28] MEDS: CYCLOBENZAPRINE HCL 10 MG TABLET (FP) PO PRN (18:25)
[2021-09-29] MEDS ORDERED: ceFAZolin SODIUM 1 GM VIAL ONE ×4 (01:49→16:48)
[2021-09-29] MEDS ORDERED: DEXTROSE 5%-WATER - 50 ML IVPB ONE ×3 (01:50→16:47)
[2021-09-29] MEDS: CEFAZOLIN 1 GM in DEXTROSE 5%-WATER - 1 GM/50 ML IVPB IVPB SCH ×3 (01:55→17:15)
[2021-09-29] MEDS: ACETAMINOPHEN 325 MG TABLET (FP) PO SCH ×4 (03:00→21:04)
[2021-09-29] MEDS: DOCUSATE SODIUM 100 MG CAPSULE (FP) PO SCH ×3 (06:09→21:05)
[2021-09-29] MEDS: HEPARIN NA (PORCINE) 5,000 UNITS/ML 1ML VIAL SQ SCH ×3 (06:09→21:06)
[2021-09-29] MEDS: GABAPENTIN 300 MG CAPSULE PO SCH ×2 (09:02→21:05)
[2021-09-29] MEDS: FERROUS SO4 325 MG TABLET (FP) PO SCH (09:02)
[2021-09-29] MEDS: FOLIC ACID 1 MG TABLET (FP) PO SCH (09:02)
[2021-09-29] MEDS: FAMOTIDINE 20 MG TABLET PO SCH (09:02)
[2021-09-29] MEDS: oxyCODONE HCL 20 MG SUSTAINED ACTING TABLET PO SCH ×2 (09:03→22:32)
[2021-09-29] MEDS: methylPREDNISolone NA SUCC 125 MG/2 ML VIAL IVPB SCH ×2 (09:04→21:05)
[2021-09-30] MEDS ORDERED: ceFAZolin SODIUM 1 GM VIAL ONE ×2 (01:15→08:38)
[2021-09-30] MEDS ORDERED: DEXTROSE 5%-WATER - 50 ML IVPB ONE ×2 (01:16→08:38)
[2021-09-30] MEDS: CEFAZOLIN 1 GM in DEXTROSE 5%-WATER - 1 GM/50 ML IVPB IVPB SCH ×2 (01:29→09:01)
[2021-09-30] MEDS: ACETAMINOPHEN 325 MG TABLET (FP) PO SCH ×4 (03:33→22:55)
[2021-09-30] MEDS: DOCUSATE SODIUM 100 MG CAPSULE (FP) PO SCH ×3 (05:53→22:16)
[2021-09-30] MEDS: HEPARIN NA (PORCINE) 5,000 UNITS/ML 1ML VIAL SQ SCH ×2 (05:53→15:00)
[2021-09-30] MEDS: FERROUS SO4 325 MG TABLET (FP) PO SCH (09:00)
[2021-09-30] MEDS: FAMOTIDINE 20 MG TABLET PO SCH (09:00)
[2021-09-30] MEDS: GABAPENTIN 300 MG CAPSULE PO SCH ×2 (09:00→22:16)
[2021-09-30] MEDS: FOLIC ACID 1 MG TABLET (FP) PO SCH (09:00)
[2021-09-30] MEDS: oxyCODONE HCL 20 MG SUSTAINED ACTING TABLET PO SCH ×2 (09:05→22:16)
[2021-09-30] MEDS: methylPREDNISolone NA SUCC 125 MG/2 ML VIAL IVPB SCH ×2 (09:06→22:16)
[2021-09-30] MEDS: CYCLOBENZAPRINE HCL 10 MG TABLET (FP) PO PRN ×2 (11:26→18:21)
[2021-10-01] MEDS: ACETAMINOPHEN 325 MG TABLET (FP) PO SCH ×4 (03:03→21:08)
[2021-10-01] MEDS: DOCUSATE SODIUM 100 MG CAPSULE (FP) PO SCH ×3 (06:00→23:06)
[2021-10-01] MEDS: FERROUS SO4 325 MG TABLET (FP) PO SCH (09:00)
[2021-10-01] MEDS: FOLIC ACID 1 MG TABLET (FP) PO SCH (09:43)
[2021-10-01] MEDS: GABAPENTIN 300 MG CAPSULE PO SCH ×2 (09:43→23:06)
[2021-10-01] MEDS: FAMOTIDINE 20 MG TABLET PO SCH (09:43)
[2021-10-01] MEDS: oxyCODONE HCL 20 MG SUSTAINED ACTING TABLET PO SCH ×2 (09:43→23:06)
[2021-10-01] MEDS: methylPREDNISolone NA SUCC 125 MG/2 ML VIAL IVPB SCH ×2 (09:43→23:06)
[2021-10-01] MEDS: CYCLOBENZAPRINE HCL 10 MG TABLET (FP) PO PRN ×2 (09:44→21:07)
[2021-10-01] MEDS ORDERED: ONDANSETRON 4 MG/2 ML VIAL IVPUSH PRN (16:32)
[2021-10-01] MEDS ORDERED: diphenhydrAMINE HCL 25 MG CAPSULE (FP) PO PRN (16:32)
[2021-10-01] MEDS ORDERED: morphine SULFATE 4 MG/ML VIAL IVPUSH ONE (23:47)
[2021-10-02] MEDS: ACETAMINOPHEN 325 MG TABLET (FP) PO SCH ×4 (04:17→21:14)
[2021-10-02] MEDS: CYCLOBENZAPRINE HCL 10 MG TABLET (FP) PO PRN (04:18)
[2021-10-02] MEDS: DOCUSATE SODIUM 100 MG CAPSULE (FP) PO SCH ×3 (06:59→21:45)
[2021-10-02] MEDS: FERROUS SO4 325 MG TABLET (FP) PO SCH (08:55)
[2021-10-02] MEDS: oxyCODONE HCL 20 MG SUSTAINED ACTING TABLET PO SCH ×2 (10:42→21:45)
[2021-10-02] MEDS: FAMOTIDINE 20 MG TABLET PO SCH (10:42)
[2021-10-02] MEDS: GABAPENTIN 300 MG CAPSULE PO SCH ×2 (10:42→21:45)
[2021-10-02] MEDS: FOLIC ACID 1 MG TABLET (FP) PO SCH (10:42)
[2021-10-02] MEDS: methylPREDNISolone NA SUCC 125 MG/2 ML VIAL IVPB SCH (11:30)
[2021-10-02] MEDS ORDERED: oxyCODONE HCL 5 MG TABLET PO ONE (12:52)
[2021-10-02] MEDS: POLYETHYLENE GLYCOL (HEALTHYLAX) 3350 17 GM PACKET PO SCH ×2 (13:35→21:45)
[2021-10-03] MEDS: CYCLOBENZAPRINE HCL 10 MG TABLET (FP) PO PRN ×2 (02:12→22:07)
[2021-10-03] MEDS: ACETAMINOPHEN 325 MG TABLET (FP) PO SCH ×4 (03:00→22:06)
[2021-10-03] MEDS: DOCUSATE SODIUM 100 MG CAPSULE (FP) PO SCH ×3 (06:08→22:07)
[2021-10-03] MEDS: predniSONE 20 MG TABLET (UD) PO SCH (09:10)
[2021-10-03] MEDS: FAMOTIDINE 20 MG TABLET PO SCH (09:10)
[2021-10-03] MEDS: GABAPENTIN 300 MG CAPSULE PO SCH ×2 (09:10→22:07)
[2021-10-03] MEDS: oxyCODONE HCL 20 MG SUSTAINED ACTING TABLET PO SCH ×2 (09:11→22:07)
[2021-10-03] MEDS: FERROUS SO4 325 MG TABLET (FP) PO SCH (09:11)
[2021-10-03] MEDS: POLYETHYLENE GLYCOL (HEALTHYLAX) 3350 17 GM PACKET PO SCH ×2 (09:11→22:07)
[2021-10-03] MEDS: FOLIC ACID 1 MG TABLET (FP) PO SCH (09:11)
[2021-10-03] MEDS: SENNOSIDES 8.6MG TABLET (FP) PO SCH (22:07)
[2021-10-04] MEDS: ACETAMINOPHEN 325 MG TABLET (FP) PO SCH ×3 (03:00→15:27)
[2021-10-04] MEDS: DOCUSATE SODIUM 100 MG CAPSULE (FP) PO SCH ×2 (05:50→15:27)
[2021-10-04] MEDS: SENNOSIDES 8.6MG TABLET (FP) PO SCH (09:41)
[2021-10-04] MEDS: POLYETHYLENE GLYCOL (HEALTHYLAX) 3350 17 GM PACKET PO SCH (09:42)
[2021-10-04] MEDS: FERROUS SO4 325 MG TABLET (FP) PO SCH (09:42)
[2021-10-04] MEDS: predniSONE 20 MG TABLET (UD) PO SCH (09:42)
[2021-10-04] MEDS: FOLIC ACID 1 MG TABLET (FP) PO SCH (09:42)
[2021-10-04] MEDS: oxyCODONE HCL 20 MG SUSTAINED ACTING TABLET PO SCH (09:42)
[2021-10-04] MEDS: GABAPENTIN 300 MG CAPSULE PO SCH (09:43)
[2021-10-04] MEDS: FAMOTIDINE 20 MG TABLET PO SCH (09:43)
[2021-10-04] MEDS: CYCLOBENZAPRINE HCL 10 MG TABLET (FP) PO PRN (11:27)
[2021-10-04 19:10] VITALS: BP 133/87; PULSE 108; TEMP 97.5
== END 2021-10-04 19:34 | DRG 454 ==
LOC: JER 13:17 → JERBED 22:38 → J7W 09-21 17:04 → J4W 09-23 18:29
PROVIDERS: ADMIT Hospitalist
PROC: 0SG0071 Fusion of Lumbar Vertebral Joint with Autologous Tissue Substitute, Posterior Approach, Posterior Column, Open Approach (ICD-10-PCS; 2021-09-23)
PROC: 0SP00AZ Removal of Interbody Fusion Device from Lumbar Vertebral Joint, Open Approach (ICD-10-PCS; 2021-09-23)
PROC: 00U20KZ Supplement Dura Mater with Nonautologous Tissue Substitute, Open Approach (ICD-10-PCS; 2021-09-23)
PROC: 01NB0ZZ Release Lumbar Nerve, Open Approach (ICD-10-PCS; 2021-09-23)
PROC: 0SB20ZZ Excision of Lumbar Vertebral Disc, Open Approach (ICD-10-PCS; 2021-09-23)
PROC: 4A11X4G Monitoring of Peripheral Nervous Electrical Activity, Intraoperative, External Approach (ICD-10-PCS; 2021-09-23)
PROC: 0SG00AJ Fusion of Lumbar Vertebral Joint with Interbody Fusion Device, Posterior Approach, Anterior Column, Open Approach (ICD-10-PCS; principal; 2021-09-23 10:30)
DX: M96.0 Pseudarthrosis after fusion or arthrodesis (principal); F11.20 Opioid dependence, uncomplicated; G97.41 Accidental puncture or laceration of dura during a procedure; M54.16 Radiculopathy, lumbar region; F41.8 Other specified anxiety disorders; J45.909 Unspecified asthma, uncomplicated; G89.29 Other chronic pain; M21.372 Foot drop, left foot; M96.1 Postlaminectomy syndrome, not elsewhere classified; Y65.8 Other specified misadventures during surgical and medical care
CPT/HCPCS: 0241U-QW; 36415; 70450-TC; 72100-TC-FY; 72131-TC; 72141-TC; 72158-TC; 73521-TC-FY; 74018-TC-FY; 76000-TC-FY; 80048; 80053; 81003; 83735; 84100; 84484; 84703; 85025; 85610; 85651; 86140; 86850; 86900; 86901; 93005; 93010; 94760; 97116-GP; 97161-GP; 99285-25; A9579; C9803-CS; J1644; U0003; U0005

== ENCOUNTER 2021-10-12 12:52 | Emergency (ER) | payer BC ==
[2021-10-12 13:22] VITALS: TEMP 98.1; BMI 29.0
[2021-10-12 16:49] VITALS: BP 126/76; PULSE 96
== END 2021-10-12 16:35 ==
LOC: JER 12:52
DX: T81.89XA Other complications of procedures, not elsewhere classified, initial encounter (principal)
CPT/HCPCS: 93005; 93010; 99283-25

== ENCOUNTER 2021-10-16 16:42 | Inpatient (IN) | payer BC ==
[2021-10-16 18:05] VITALS: BMI 29.0
[2021-10-16] MEDS ORDERED: VANCOMYCIN 1 GM in D5W (PRE-DOCKED) 1,000 MG/250 ML IVPB ONE (18:11)
[2021-10-16] MEDS ORDERED: CEFEPIME HCL/D5W 1 GM/50 ML BAG IVPB ONE (18:11)
[2021-10-16] MEDS ORDERED: CEFEPIME 1 GM/100 ML BAG IVPB ONE (18:36)
[2021-10-16 19:26] LABS: BASO % 0.8 % (0-2.0); EOS % 4.1 % (0-4.5); HEMATOCRIT 33.7 % (32.4-45.2); HEMOGLOBIN 11.5 GM/dL (10.7-15.3); LYMPH % 32.1 % (8-40); MCH 29.5 pg (25.7-33.7); MEAN CELL VOLUME 86.8 fl (80-96); MEAN PLT VOLUME 6.8 fl (7.5-11.1); MONO % 8.6 % (3.8-10.2); NEUT % 54.4 % (42.8-82.8); PLATELET COUNT 237 10^3/uL (134-434); RBC 3.89 M/mm3 (3.60-5.2); RDW 14.9 % (11.6-15.6); WHITE BLOOD COUNT 5.6 K/mm3 (4.0-10.0)
[2021-10-16] MEDS ORDERED: SODIUM CHLORIDE 0.9% 500 ML INFUS.BAG IV ONE (19:28)
[2021-10-16 19:33] LABS: INR 1.06 (0.83-1.09); PROTHROMBIN TIME (PATIENT) 12.2 SEC (9.7-13.0)
[2021-10-16 19:36] LABS: ACTIVATED PTT 31.7 SECONDS (25.2-36.5)
[2021-10-16 19:49] LABS: CALCIUM 8.9 mg/dL (8.5-10.1)
[2021-10-16 19:51] LABS: ALBUMIN 3.3 g/dl (3.4-5.0); BLOOD UREA NITROGEN 6.5 mg/dL (7-18)
[2021-10-16 19:54] LABS: CREATININE 0.7 mg/dL (0.55-1.3)
[2021-10-16 19:55] LABS: BILIRUBIN,TOTAL 0.4 mg/dL (0.2-1); TOT PROT 6.7 g/dl (6.4-8.2)
[2021-10-16] MEDS ORDERED: POLYETHYLENE GLYCOL (HEALTHYLAX) 3350 17 GM PACKET PO PRN (20:25)
[2021-10-16] MEDS ORDERED: ACETAMINOPHEN 1000 MG/100 ML BAG IVPB PRN (20:34)
[2021-10-16] MEDS ORDERED: VANCOMYCIN 1 GRAM (PRE-DOCKED) 1,000 MG/250 ML BAG IVPB ONE (20:49)
[2021-10-16] MEDS ORDERED: ACETAMINOPHEN 325 MG TABLET (FP) ONE (21:21)
[2021-10-16] MEDS: ACETAMINOPHEN 325 MG TABLET (FP) PO PRN (21:30)
[2021-10-16] MEDS ORDERED: MELATONIN 5 MG TABLETS ONE (23:05)
[2021-10-16] MEDS: MELATONIN 5 MG TABLETS PO PRN (23:22)
[2021-10-17] MEDS ORDERED: ACETAMINOPHEN INJECTION 100 ML IVPB ONE (04:00)
[2021-10-17] MEDS: CEFEPIME 1 GM in DEXTROSE 5%-WATER - 1 GM/50 ML IVPB IVPB SCH ×2 (04:00→09:39)
[2021-10-17] MEDS ORDERED: CEFEPIME 1 GM/100 ML BAG IVPB ONE ×2 (04:01→09:30)
[2021-10-17 05:51] LABS: PH,URINE 5.5 (5.0-8.0); URINE APPEARANCE CLEAR; URINE BILIRUBIN NEGATIVE (NEGATIVE); URINE COLOR YELLOW; URINE GLUCOSE (UA) NEGATIVE (NEGATIVE); URINE KETONE NEGATIVE (NEGATIVE); URINE LEUK ESTERASE NEGATIVE (NEGATIVE); URINE NITRITE NEGATIVE (NEGATIVE); URINE PROTEIN NEGATIVE (NEGATIVE); URINE UROBILINOGEN 0.2 mg/dL (0.2-1.0)
[2021-10-17] MEDS ORDERED: CYCLOBENZAPRINE HCL 10 MG TABLET (FP) PO PRN (06:45)
[2021-10-17] MEDS ORDERED: oxyCODONE HCL 5 MG TABLET PO PRN (06:45)
[2021-10-17] MEDS ORDERED: VANCOMYCIN 1 GRAM (PRE-DOCKED) 1,000 MG/250 ML BAG IVPB SCH (07:00)
[2021-10-17] MEDS ORDERED: VANCOMYCIN 1 GRAM (PRE-DOCKED) 1,000 MG/250 ML BAG IVPB ONE (07:34)
[2021-10-17 09:12] LABS: BASO % 0.8 % (0-2.0); EOS % 4.3 % (0-4.5); HEMATOCRIT 30.4 % (32.4-45.2); HEMOGLOBIN 10.4 GM/dL (10.7-15.3); LYMPH % 29.5 % (8-40); MCH 29.5 pg (25.7-33.7); MCHC 34.1 g/dl (32.0-36.0); MEAN CELL VOLUME 86.4 fl (80-96); MEAN PLT VOLUME 7.1 fl (7.5-11.1); MONO % 8.1 % (3.8-10.2); NEUT % 57.3 % (42.8-82.8); PLATELET COUNT 233 10^3/uL (134-434); RBC 3.51 M/mm3 (3.60-5.2); RDW 15.1 % (11.6-15.6); WHITE BLOOD COUNT 4.5 K/mm3 (4.0-10.0)
[2021-10-17] MEDS ORDERED: ACETAMINOPHEN 325 MG TABLET (FP) ONE (09:30)
[2021-10-17] MEDS: DOCUSATE SODIUM 100 MG CAPSULE (FP) PO SCH (09:39)
[2021-10-17] MEDS: ACETAMINOPHEN 325 MG TABLET (FP) PO PRN (09:40)
[2021-10-17] MEDS ORDERED: DEXTROSE 5%-NORMAL SALINE 1,000 ML IV SCH ×2 (09:50)
[2021-10-17] MEDS ORDERED: VANCOMYCIN 1 GM in D5W (PRE-DOCKED) 1,000 MG/250 ML IVPB SCH (10:00)
[2021-10-17 10:10] LABS: CALCIUM 8.6 mg/dL (8.5-10.1)
[2021-10-17 10:14] LABS: CREATININE 0.5 mg/dL (0.55-1.3)
[2021-10-17] MEDS ORDERED: VANCOMYCIN 1,000 MG VIAL (RESTRICTED TO ID ONLY) ONE (10:25)
[2021-10-17] MEDS ORDERED: BUPIVACAINE HCL/PF 0.25% (2.5MG/ML) 10 ML VIAL ONE (10:25)
[2021-10-17] MEDS ORDERED: THROMBIN (BOVINE) 5,000 UNIT VIAL TP ONE ×2 (10:28→11:15)
[2021-10-17] MEDS ORDERED: LIDOCAINE 1%/EPI 1:100000 (20 ML MULTI DOSE VIAL) ONE (10:56)
[2021-10-17] MEDS ORDERED: VANCOMYCIN 1,000 MG VIAL (RESTRICTED TO ID ONLY) IVPB ONE ×2 (11:30)
[2021-10-17] MEDS ORDERED: GENTAMICIN 80MG PREMIX BAG IVPB ONE (11:33)
[2021-10-17] MEDS ORDERED: BUPIVACAINE HCL/PF 0.25% (2.5MG/ML) 10 ML VIAL IJ ONE ×2 (11:33→13:57)
[2021-10-17] MEDS ORDERED: ROCURONIUM BROMIDE 100 MG/10 ML VIAL ONE (12:25)
[2021-10-17] MEDS ORDERED: LIDOCAINE HCL/PF 2% SDV 5ML VIAL ONE (12:25)
[2021-10-17] MEDS ORDERED: KETOROLAC TROMETHAMINE 30 MG/1 ML VIAL ONE (12:25)
[2021-10-17] MEDS ORDERED: MIDAZOLAM HCL 2 MG/2 ML SINGLE DOSE VIAL ONE (12:25)
[2021-10-17] MEDS ORDERED: DEXAMETHASONE SOD PHOSPHATE 4 MG/1 ML VIAL ONE (12:25)
[2021-10-17] MEDS ORDERED: PROPOFOL 20 ML ONE (12:25)
[2021-10-17] MEDS ORDERED: ONDANSETRON 4 MG/2 ML VIAL ONE ×2 (12:25→13:04)
[2021-10-17] MEDS ORDERED: BENZOIN/ALOE VERA/STORAX/TOLU 58 ML BOTTLE ONE (12:28)
[2021-10-17] MEDS ORDERED: GENTAMICIN SO4 80 MG/2 ML VIAL ONE (12:39)
[2021-10-17] MEDS ORDERED: LIDOCAINE 1%/EPI 1:100000 (20 ML MULTI DOSE VIAL) INF ONE (13:28)
[2021-10-17] MEDS ORDERED: GENTAMICIN SO4 80 MG/2 ML VIAL IVPB ONE (13:29)
[2021-10-17] MEDS ORDERED: SUGAMMADEX SODIUM 200 MG/2 ML VIAL ONE (13:48)
[2021-10-17] MEDS ORDERED: BUPIVACAINE LIPOSOME/PF (EXPAREL) 266 MG/20 ML VIAL ONE (13:52)
[2021-10-17] MEDS ORDERED: BUPIVACAINE LIPOSOME/PF (EXPAREL) 266 MG/20 ML VIAL NR ONE (13:56)
[2021-10-17] MEDS ORDERED: ONDANSETRON 4 MG/2 ML VIAL IVPUSH PRN (14:47)
[2021-10-17] MEDS ORDERED: PROMETHAZINE HCL 25 MG/1 ML VIAL IVPUSH PRN (14:47)
[2021-10-17] MEDS ORDERED: FENTANYL CITRATE/PF 50 MCG/ML VIAL ONE ×3 (17:48→21:11)
[2021-10-17] MEDS: CEFEPIME 2 GM in DEXTROSE 5%-WATER 2 GM/100 ML BAG IVPB SCH (18:00)
[2021-10-17] MEDS ORDERED: CEFAZOLIN 1 GM/D5W 1 GM/50 ML BAG IVPB SCH (18:00)
[2021-10-18] MEDS: VANCOMYCIN 1 GRAM (PRE-DOCKED) 1,000 MG/250 ML BAG IVPB SCH ×3 (01:20→23:01)
[2021-10-18] MEDS: oxyCODONE HCL 5 MG TABLET PO PRN ×3 (01:21→11:22)
[2021-10-18] MEDS: DOCUSATE SODIUM 100 MG CAPSULE (FP) PO SCH ×3 (01:21→22:54)
[2021-10-18] MEDS: CEFEPIME HCL/D5W 1 GM/50 ML BAG IVPB SCH (01:30)
[2021-10-18] MEDS ORDERED: DEXTROSE 5%-WATER 100 ML IVPB ONE ×2 (02:26→09:32)
[2021-10-18] MEDS ORDERED: CEFEPIME HCL 2 GM VIAL (RESTRICTED TO ID) ONE ×2 (02:26→09:32)
[2021-10-18] MEDS: CEFEPIME 2 GM in DEXTROSE 5%-WATER 2 GM/100 ML BAG IVPB SCH ×3 (03:09→18:03)
[2021-10-18 09:03] LABS: HEMATOCRIT 31.2 % (32.4-45.2); MCH 30.2 pg (25.7-33.7); MCHC 35.2 g/dl (32.0-36.0); MEAN CELL VOLUME 85.6 fl (80-96); MEAN PLT VOLUME 6.8 fl (7.5-11.1); PLATELET COUNT 281 10^3/uL (134-434); RBC 3.65 M/mm3 (3.60-5.2); RDW 14.3 % (11.6-15.6); WHITE BLOOD COUNT 6.3 K/mm3 (4.0-10.0)
[2021-10-18] MEDS: FOLIC ACID 1 MG TABLET (FP) PO SCH (09:34)
[2021-10-18] MEDS: ACETAMINOPHEN 325 MG TABLET (FP) PO PRN ×2 (09:35→18:04)
[2021-10-18 09:39] LABS: CALCIUM 9.1 mg/dL (8.5-10.1)
[2021-10-18 09:40] LABS: BLOOD UREA NITROGEN 6.4 mg/dL (7-18)
[2021-10-18 09:43] LABS: CREATININE 0.5 mg/dL (0.55-1.3)
[2021-10-18] MEDS: acetaZOLAMIDE 250 MG TABLET PO SCH ×2 (10:47→22:54)
[2021-10-19] MEDS: CEFEPIME 2 GM in DEXTROSE 5%-WATER 2 GM/100 ML BAG IVPB SCH ×3 (02:35→17:48)
[2021-10-19] MEDS ORDERED: DEXTROSE 5%-WATER 100 ML IVPB ONE ×3 (03:33→17:44)
[2021-10-19] MEDS ORDERED: CEFEPIME HCL 2 GM VIAL (RESTRICTED TO ID) ONE ×3 (03:33→17:44)
[2021-10-19] MEDS: ACETAMINOPHEN 325 MG TABLET (FP) PO PRN (05:46)
[2021-10-19] MEDS: HEPARIN NA (PORCINE) 5,000 UNITS/ML 1ML VIAL SQ SCH ×2 (09:28→21:11)
[2021-10-19] MEDS: DOCUSATE SODIUM 100 MG CAPSULE (FP) PO SCH ×2 (09:29→21:12)
[2021-10-19] MEDS: FOLIC ACID 1 MG TABLET (FP) PO SCH (09:29)
[2021-10-19] MEDS: acetaZOLAMIDE 250 MG TABLET PO SCH ×2 (09:30→21:11)
[2021-10-19] MEDS: VANCOMYCIN 1 GRAM (PRE-DOCKED) 1,000 MG/250 ML BAG IVPB SCH ×2 (10:44→23:01)
[2021-10-19] MEDS: oxyCODONE HCL 5 MG TABLET PO PRN ×2 (11:18→20:33)
[2021-10-19 12:04] LABS: BASO % 0.7 % (0-2.0); EOS % 5.6 % (0-4.5); HEMATOCRIT 34.5 % (32.4-45.2); HEMOGLOBIN 11.7 GM/dL (10.7-15.3); LYMPH % 25.3 % (8-40); MCH 29.3 pg (25.7-33.7); MCHC 33.8 g/dl (32.0-36.0); MEAN CELL VOLUME 86.7 fl (80-96); MEAN PLT VOLUME 7.2 fl (7.5-11.1); MONO % 10.5 % (3.8-10.2); NEUT % 57.9 % (42.8-82.8); PLATELET COUNT 361 10^3/uL (134-434); RBC 3.98 M/mm3 (3.60-5.2); RDW 14.9 % (11.6-15.6); WHITE BLOOD COUNT 5.6 K/mm3 (4.0-10.0)
[2021-10-19] MEDS ORDERED: oxyCODONE HCL 5 MG TABLET PO PRN (12:37)
[2021-10-19 12:38] LABS: BLOOD UREA NITROGEN 5.7 mg/dL (7-18); CALCIUM 8.8 mg/dL (8.5-10.1)
[2021-10-19] MEDS ORDERED: morphine SULFATE 4 MG/ML VIAL IVPUSH PRN (12:38)
[2021-10-19 12:40] LABS: ALBUMIN 3.1 g/dl (3.4-5.0)
[2021-10-19 12:41] LABS: CREATININE 0.6 mg/dL (0.55-1.3)
[2021-10-19 12:44] LABS: BILIRUBIN,TOTAL 0.5 mg/dL (0.2-1); TOT PROT 6.7 g/dl (6.4-8.2)
[2021-10-19] MEDS: ACETAMINOPHEN 500 MG TABLET (FP) PO SCH ×3 (13:32→17:55)
[2021-10-19] MEDS: MELATONIN 5 MG TABLETS PO PRN (20:40)
[2021-10-20] MEDS: ACETAMINOPHEN 500 MG TABLET (FP) PO SCH ×4 (01:43→17:46)
[2021-10-20] MEDS ORDERED: DEXTROSE 5%-WATER 100 ML IVPB ONE ×3 (02:13→17:42)
[2021-10-20] MEDS ORDERED: CEFEPIME HCL 2 GM VIAL (RESTRICTED TO ID) ONE ×3 (02:13→17:42)
[2021-10-20] MEDS: CEFEPIME 2 GM in DEXTROSE 5%-WATER 2 GM/100 ML BAG IVPB SCH ×3 (02:17→17:46)
[2021-10-20] MEDS: oxyCODONE HCL 5 MG TABLET PO PRN (03:16)
[2021-10-20] MEDS: FOLIC ACID 1 MG TABLET (FP) PO SCH (10:21)
[2021-10-20] MEDS: HEPARIN NA (PORCINE) 5,000 UNITS/ML 1ML VIAL SQ SCH ×2 (10:21→21:30)
[2021-10-20] MEDS: acetaZOLAMIDE 250 MG TABLET PO SCH ×2 (10:21→21:30)
[2021-10-20] MEDS: DOCUSATE SODIUM 100 MG CAPSULE (FP) PO SCH ×2 (10:21→21:30)
[2021-10-20] MEDS: VANCOMYCIN 1 GRAM (PRE-DOCKED) 1,000 MG/250 ML BAG IVPB SCH (11:22)
[2021-10-20] MEDS ORDERED: traMADol HCL 50 MG TABLET PO PRN (18:48)
[2021-10-20] MEDS ORDERED: oxyCODONE HCL 5 MG TABLET PO PRN (18:48)
[2021-10-21] MEDS ORDERED: CEFEPIME HCL 2 GM VIAL (RESTRICTED TO ID) ONE (02:14)
[2021-10-21] MEDS ORDERED: DEXTROSE 5%-WATER 100 ML IVPB ONE (02:15)
[2021-10-21] MEDS: CEFEPIME 2 GM in DEXTROSE 5%-WATER 2 GM/100 ML BAG IVPB SCH ×2 (02:22→10:25)
[2021-10-21] MEDS: acetaZOLAMIDE 250 MG TABLET PO SCH ×2 (09:42→22:06)
[2021-10-21] MEDS: FOLIC ACID 1 MG TABLET (FP) PO SCH (09:45)
[2021-10-21] MEDS: HEPARIN NA (PORCINE) 5,000 UNITS/ML 1ML VIAL SQ SCH ×2 (09:45→20:32)
[2021-10-21] MEDS: DOCUSATE SODIUM 100 MG CAPSULE (FP) PO SCH ×2 (09:45→22:06)
[2021-10-21 10:09] LABS: BASO % 0.7 % (0-2.0); EOS % 5.6 % (0-4.5); HEMATOCRIT 35.6 % (32.4-45.2); HEMOGLOBIN 12.3 GM/dL (10.7-15.3); MCH 29.3 pg (25.7-33.7); MCHC 34.4 g/dl (32.0-36.0); MEAN CELL VOLUME 85.3 fl (80-96); MEAN PLT VOLUME 6.5 fl (7.5-11.1); MONO % 8.6 % (3.8-10.2); NEUT % 59.1 % (42.8-82.8); PLATELET COUNT 502 10^3/uL (134-434); RBC 4.18 M/mm3 (3.60-5.2); RDW 14.9 % (11.6-15.6); WHITE BLOOD COUNT 6.4 K/mm3 (4.0-10.0)
[2021-10-21] MEDS ORDERED: oxyCODONE HCL 5 MG TABLET PO PRN (10:12)
[2021-10-21 10:33] LABS: BLOOD UREA NITROGEN 11.9 mg/dL (7-18); CALCIUM 9.2 mg/dL (8.5-10.1)
[2021-10-21 10:36] LABS: CREATININE 0.6 mg/dL (0.55-1.3)
[2021-10-21 10:38] LABS: BILIRUBIN,TOTAL 0.6 mg/dL (0.2-1)
[2021-10-21] MEDS: oxyCODONE HCL 5 MG TABLET PO PRN (20:32)
[2021-10-21] MEDS: MELATONIN 5 MG TABLETS PO PRN (20:33)
[2021-10-22] MEDS: HEPARIN NA (PORCINE) 5,000 UNITS/ML 1ML VIAL SQ SCH ×2 (09:31→21:04)
[2021-10-22] MEDS: DOCUSATE SODIUM 100 MG CAPSULE (FP) PO SCH ×2 (09:32→21:04)
[2021-10-22] MEDS: acetaZOLAMIDE 250 MG TABLET PO SCH ×2 (09:32→21:05)
[2021-10-22] MEDS: FOLIC ACID 1 MG TABLET (FP) PO SCH (09:32)
[2021-10-22] MEDS: ACETAMINOPHEN 325 MG TABLET (FP) PO PRN ×2 (12:23→18:35)
[2021-10-22] MEDS: MELATONIN 5 MG TABLETS PO PRN (21:05)
[2021-10-22] MEDS: oxyCODONE HCL 5 MG TABLET PO PRN (21:33)
[2021-10-23 09:30] LABS: BASO % 0.7 % (0-2.0); EOS % 4.8 % (0-4.5); HEMATOCRIT 34.6 % (32.4-45.2); LYMPH % 28.5 % (8-40); MCH 29.7 pg (25.7-33.7); MCHC 34.8 g/dl (32.0-36.0); MEAN CELL VOLUME 85.4 fl (80-96); MONO % 11.4 % (3.8-10.2); NEUT % 54.6 % (42.8-82.8); PLATELET COUNT 563 10^3/uL (134-434); RBC 4.05 M/mm3 (3.60-5.2); RDW 14.8 % (11.6-15.6); WHITE BLOOD COUNT 5.9 K/mm3 (4.0-10.0)
[2021-10-23] MEDS: DOCUSATE SODIUM 100 MG CAPSULE (FP) PO SCH ×2 (09:47→22:06)
[2021-10-23] MEDS: acetaZOLAMIDE 250 MG TABLET PO SCH ×2 (09:47→22:07)
[2021-10-23] MEDS: HEPARIN NA (PORCINE) 5,000 UNITS/ML 1ML VIAL SQ SCH ×2 (09:47→22:06)
[2021-10-23] MEDS: FOLIC ACID 1 MG TABLET (FP) PO SCH (09:47)
[2021-10-23] MEDS: oxyCODONE HCL 5 MG TABLET PO PRN (22:24)
[2021-10-23] MEDS: MELATONIN 5 MG TABLETS PO PRN (22:26)
[2021-10-23] MEDS: diphenhydrAMINE HCL 25 MG CAPSULE (FP) PO PRN (22:32)
[2021-10-24] MEDS: HEPARIN NA (PORCINE) 5,000 UNITS/ML 1ML VIAL SQ SCH ×2 (10:10→21:57)
[2021-10-24] MEDS: DOCUSATE SODIUM 100 MG CAPSULE (FP) PO SCH ×2 (10:10→21:56)
[2021-10-24] MEDS: FOLIC ACID 1 MG TABLET (FP) PO SCH (10:10)
[2021-10-24] MEDS: acetaZOLAMIDE 250 MG TABLET PO SCH ×2 (10:10→21:56)
[2021-10-24] MEDS: MELATONIN 5 MG TABLETS PO PRN (21:56)
[2021-10-24] MEDS: ACETAMINOPHEN 325 MG TABLET (FP) PO PRN (21:56)
[2021-10-25] MEDS: FOLIC ACID 1 MG TABLET (FP) PO SCH (10:12)
[2021-10-25] MEDS: HEPARIN NA (PORCINE) 5,000 UNITS/ML 1ML VIAL SQ SCH ×2 (10:12→22:18)
[2021-10-25] MEDS: acetaZOLAMIDE 250 MG TABLET PO SCH ×2 (10:12→22:24)
[2021-10-25] MEDS: DOCUSATE SODIUM 100 MG CAPSULE (FP) PO SCH ×3 (10:12→22:32)
[2021-10-25] MEDS: ACETAMINOPHEN 325 MG TABLET (FP) PO PRN (22:21)
[2021-10-25] MEDS: MELATONIN 5 MG TABLETS PO PRN (22:23)
[2021-10-25] MEDS: diphenhydrAMINE HCL 25 MG CAPSULE (FP) PO PRN (22:24)
[2021-10-26] MEDS: HEPARIN NA (PORCINE) 5,000 UNITS/ML 1ML VIAL SQ SCH ×2 (10:11→21:29)
[2021-10-26] MEDS: ACETAMINOPHEN 325 MG TABLET (FP) PO PRN ×2 (10:12→21:33)
[2021-10-26] MEDS: DOCUSATE SODIUM 100 MG CAPSULE (FP) PO SCH ×2 (10:14→21:29)
[2021-10-26] MEDS: acetaZOLAMIDE 250 MG TABLET PO SCH ×2 (10:15→21:29)
[2021-10-26] MEDS: FOLIC ACID 1 MG TABLET (FP) PO SCH (10:15)
[2021-10-26] MEDS: diphenhydrAMINE HCL 25 MG CAPSULE (FP) PO PRN (21:29)
[2021-10-26] MEDS: MELATONIN 5 MG TABLETS PO PRN (21:33)
[2021-10-27] MEDS: ACETAMINOPHEN 325 MG TABLET (FP) PO PRN ×2 (08:43→21:57)
[2021-10-27 09:41] LABS: CALCIUM 9.2 mg/dL (8.5-10.1)
[2021-10-27 09:42] LABS: ALBUMIN 3.1 g/dl (3.4-5.0); MAGNESIUM 2.4 mg/dL (1.8-2.4)
[2021-10-27 09:45] LABS: CREATININE 0.6 mg/dL (0.55-1.3)
[2021-10-27 09:46] LABS: BILIRUBIN,TOTAL 0.4 mg/dL (0.2-1)
[2021-10-27 10:13] LABS: HEMATOCRIT 33.5 % (32.4-45.2); HEMOGLOBIN 11.4 GM/dL (10.7-15.3); MCH 29.2 pg (25.7-33.7); MCHC 34.2 g/dl (32.0-36.0); MEAN CELL VOLUME 85.4 fl (80-96); MEAN PLT VOLUME 7.2 fl (7.5-11.1); PLATELET COUNT 525 10^3/uL (134-434); RBC 3.92 M/mm3 (3.60-5.2); RDW 14.5 % (11.6-15.6); WHITE BLOOD COUNT 6.6 K/mm3 (4.0-10.0)
[2021-10-27] MEDS: HEPARIN NA (PORCINE) 5,000 UNITS/ML 1ML VIAL SQ SCH ×2 (10:57→21:56)
[2021-10-27] MEDS: acetaZOLAMIDE 250 MG TABLET PO SCH ×2 (10:58→21:57)
[2021-10-27] MEDS: DOCUSATE SODIUM 100 MG CAPSULE (FP) PO SCH ×2 (10:58→21:56)
[2021-10-27] MEDS: FOLIC ACID 1 MG TABLET (FP) PO SCH (10:59)
[2021-10-27] MEDS: MELATONIN 5 MG TABLETS PO PRN (21:57)
[2021-10-27] MEDS: diphenhydrAMINE HCL 25 MG CAPSULE (FP) PO PRN (21:57)
[2021-10-28] MEDS: HEPARIN NA (PORCINE) 5,000 UNITS/ML 1ML VIAL SQ SCH ×2 (10:09→22:20)
[2021-10-28] MEDS: ACETAMINOPHEN 325 MG TABLET (FP) PO PRN ×2 (10:10→22:18)
[2021-10-28] MEDS: diphenhydrAMINE HCL 25 MG CAPSULE (FP) PO PRN ×2 (10:10→22:21)
[2021-10-28] MEDS: DOCUSATE SODIUM 100 MG CAPSULE (FP) PO SCH ×2 (10:10→22:21)
[2021-10-28] MEDS: FOLIC ACID 1 MG TABLET (FP) PO SCH (10:11)
[2021-10-28] MEDS: acetaZOLAMIDE 250 MG TABLET PO SCH ×2 (10:11→22:22)
[2021-10-28] MEDS: MELATONIN 5 MG TABLETS PO PRN (22:21)
[2021-10-29] MEDS: ACETAMINOPHEN 325 MG TABLET (FP) PO PRN ×2 (04:55→16:32)
[2021-10-29] MEDS: diphenhydrAMINE HCL 25 MG CAPSULE (FP) PO PRN ×2 (04:57→21:20)
[2021-10-29] MEDS: DOCUSATE SODIUM 100 MG CAPSULE (FP) PO SCH ×2 (09:55→21:20)
[2021-10-29] MEDS: FOLIC ACID 1 MG TABLET (FP) PO SCH (09:55)
[2021-10-29] MEDS: acetaZOLAMIDE 250 MG TABLET PO SCH ×2 (09:55→21:20)
[2021-10-29] MEDS: HEPARIN NA (PORCINE) 5,000 UNITS/ML 1ML VIAL SQ SCH ×2 (09:56→21:05)
[2021-10-29] MEDS: MELATONIN 5 MG TABLETS PO PRN (21:20)
[2021-10-30] MEDS: ACETAMINOPHEN 325 MG TABLET (FP) PO PRN ×3 (05:01→22:24)
[2021-10-30] MEDS: FOLIC ACID 1 MG TABLET (FP) PO SCH (09:55)
[2021-10-30] MEDS: acetaZOLAMIDE 250 MG TABLET PO SCH ×2 (09:55→22:13)
[2021-10-30] MEDS: DOCUSATE SODIUM 100 MG CAPSULE (FP) PO SCH ×2 (09:55→22:13)
[2021-10-30] MEDS: HEPARIN NA (PORCINE) 5,000 UNITS/ML 1ML VIAL SQ SCH ×3 (09:56→22:17)
[2021-10-30] MEDS: diphenhydrAMINE HCL 25 MG CAPSULE (FP) PO PRN (22:13)
[2021-10-30] MEDS: MELATONIN 5 MG TABLETS PO PRN (22:25)
[2021-10-31] MEDS: ACETAMINOPHEN 325 MG TABLET (FP) PO PRN (10:08)
[2021-10-31] MEDS: DOCUSATE SODIUM 100 MG CAPSULE (FP) PO SCH ×2 (10:10→22:24)
[2021-10-31] MEDS: HEPARIN NA (PORCINE) 5,000 UNITS/ML 1ML VIAL SQ SCH ×2 (10:10→22:24)
[2021-10-31] MEDS: FOLIC ACID 1 MG TABLET (FP) PO SCH (10:10)
[2021-10-31] MEDS: acetaZOLAMIDE 250 MG TABLET PO SCH ×2 (13:38→22:24)
[2021-11-01 06:49] VITALS: RESP 20
[2021-11-01 09:13] LABS: HEMATOCRIT 32.7 % (32.4-45.2); HEMOGLOBIN 11.5 GM/dL (10.7-15.3); MCH 29.8 pg (25.7-33.7); MCHC 35.1 g/dl (32.0-36.0); MEAN CELL VOLUME 84.8 fl (80-96); MEAN PLT VOLUME 6.9 fl (7.5-11.1); PLATELET COUNT 376 10^3/uL (134-434); RBC 3.85 M/mm3 (3.60-5.2); RDW 15.2 % (11.6-15.6)
[2021-11-01 09:27] LABS: CALCIUM 9.1 mg/dL (8.5-10.1)
[2021-11-01 09:28] LABS: ALBUMIN 3.1 g/dl (3.4-5.0); BLOOD UREA NITROGEN 9.8 mg/dL (7-18); MAGNESIUM 2.2 mg/dL (1.8-2.4)
[2021-11-01 09:31] LABS: BILIRUBIN,TOTAL 0.6 mg/dL (0.2-1); CREATININE 0.7 mg/dL (0.55-1.3)
[2021-11-01 09:33] LABS: TOT PROT 6.8 g/dl (6.4-8.2)
[2021-11-01] MEDS ORDERED: DULoxetine HCL 20 MG CAPSULE.DR PO SCH (10:00)
[2021-11-01] MEDS: FOLIC ACID 1 MG TABLET (FP) PO SCH (10:36)
[2021-11-01] MEDS: ACETAMINOPHEN 325 MG TABLET (FP) PO PRN (10:36)
[2021-11-01] MEDS: DOCUSATE SODIUM 100 MG CAPSULE (FP) PO SCH (10:36)
[2021-11-01] MEDS: HEPARIN NA (PORCINE) 5,000 UNITS/ML 1ML VIAL SQ SCH (10:38)
[2021-11-01] MEDS: acetaZOLAMIDE 250 MG TABLET PO SCH (10:39)
[2021-11-01 16:54] VITALS: BP 112/76; PULSE 113; TEMP 98.1
== END 2021-11-01 17:12 | DRG 904 ==
LOC: JER 16:42 → JERBED 17:35 → J8W 10-17 22:27
PROVIDERS: ADMIT Hospitalist; ATTEND Family Medicine
PROC: 4A11X4G Monitoring of Peripheral Nervous Electrical Activity, Intraoperative, External Approach (ICD-10-PCS; 2021-10-17)
PROC: 0JX70ZB Transfer Back Subcutaneous Tissue and Fascia with Skin and Subcutaneous Tissue, Open Approach (ICD-10-PCS; principal; 2021-10-17 11:00)
DX: T81.32XA Disruption of internal operation (surgical) wound, not elsewhere classified, initial encounter (principal); I97.89 Other postprocedural complications and disorders of the circulatory system, not elsewhere classified; G97.82 Other postprocedural complications and disorders of nervous system; Y83.8 Other surgical procedures as the cause of abnormal reaction of the patient, or of later complication, without mention of misadventure at the time of the procedure; M96.1 Postlaminectomy syndrome, not elsewhere classified; M21.372 Foot drop, left foot; M54.50 Low back pain, unspecified; M48.061 Spinal stenosis, lumbar region without neurogenic claudication; G89.29 Other chronic pain; J45.909 Unspecified asthma, uncomplicated; R50.9 Fever, unspecified; M25.562 Pain in left knee; I80.8 Phlebitis and thrombophlebitis of other sites; M41.86 Other forms of scoliosis, lumbar region; R29.898 Other symptoms and signs involving the musculoskeletal system; Z98.890 Other specified postprocedural states; Z88.0 Allergy status to penicillin; G96.198 Other disorders of meninges, not elsewhere classified
CPT/HCPCS: 36415; 72131-TC; 72156-TC; 80048; 80053; 81003; 83735; 84439; 84443; 84703; 85025; 85027; 85610; 85651; 85730; 86140; 86850; 86900; 86901; 87040; 87086; 87205; 88304-TC; 93005; 93010; 93970-TC; 94760; 97116-GP; 97161-GP; 99285-25; A9579; C1887; C9803-CS; J1644; U0003; U0005

== ENCOUNTER 2022-02-13 19:43 | Emergency (ER) | payer BC ==
[2022-02-13 20:09] VITALS: BP 107/75; PULSE 81; RESP 18; TEMP 98.4; BMI 29.2
[2022-02-13 22:37] LABS: BASO % 0.8 % (0-2.0); EOS % 4.1 % (0-4.5); HEMATOCRIT 35.6 % (32.4-45.2); HEMOGLOBIN 12.2 GM/dL (10.7-15.3); LYMPH % 23.3 % (8-40); MCH 29.2 pg (25.7-33.7); MCHC 34.3 g/dl (32.0-36.0); MEAN CELL VOLUME 85.1 fl (80-96); MEAN PLT VOLUME 7.4 fl (7.5-11.1); MONO % 6.7 % (3.8-10.2); NEUT % 65.1 % (42.8-82.8); PLATELET COUNT 262 10^3/uL (134-434); RBC 4.19 M/mm3 (3.60-5.2); RDW 13.6 % (11.6-15.6); WHITE BLOOD COUNT 7.3 K/mm3 (4.0-10.0)
[2022-02-13 22:58] LABS: ALBUMIN 3.8 g/dl (3.4-5.0); BLOOD UREA NITROGEN 8.5 mg/dL (7-18)
[2022-02-13 23:01] LABS: CREATININE 0.6 mg/dL (0.55-1.3)
[2022-02-13 23:02] LABS: BILIRUBIN,TOTAL 0.3 mg/dL (0.2-1)
== END 2022-02-14 00:39 | disposition home or self-care (01) ==
LOC: JER 19:43
DX: R41.89 Other symptoms and signs involving cognitive functions and awareness (principal); W19.XXXA Unspecified fall, initial encounter
CPT/HCPCS: 36415; 70450-TC; 71046-TC-FY; 80053; 85025; 86850; 86900; 86901; 93005; 93010; 99285-25

== ENCOUNTER 2024-03-27 00:40 | Emergency (ER) | payer OTHER ==
[2024-03-27 01:14] VITALS: RESP 18; BMI 26.5
[2024-03-27] MEDS: ACETAMINOPHEN 325 MG TABLET (FP) PO ONE (03:58)
[2024-03-27] MEDS: traMADol HCL 50 MG TABLET PO ONE (03:58)
[2024-03-27] MEDS ORDERED: traMADol HCL 50 MG TABLET ONE (04:00)
[2024-03-27 06:45] VITALS: BP 110/60; PULSE 90; TEMP 98.5
== END 2024-03-27 09:20 | disposition home or self-care (01) ==
LOC: JER 00:40
DX: R51.9 Headache, unspecified (principal); M54.2 Cervicalgia; R29.898 Other symptoms and signs involving the musculoskeletal system; V00.811A Fall from moving wheelchair (powered), initial encounter
CPT/HCPCS: 70450-TC; 72125-TC; 99284-25

== ENCOUNTER 2024-04-13 16:24 | Observation (INO) | payer OTHER ==
[2024-04-13] MEDS ORDERED: ACETAMINOPHEN 325 MG TABLET (FP) ONE (18:16)
[2024-04-13] MEDS: ACETAMINOPHEN 500 MG TABLET (FP) PO ONE (18:30)
[2024-04-13 21:18] LABS: BASO % 0.6 % (0-2.0); EOS % 5.8 % (0-4.5); HEMATOCRIT 39.7 % (32.4-45.2); HEMOGLOBIN 13.3 GM/dL (10.7-15.3); LYMPH % 31.7 % (8-40); MCH 29.3 pg (25.7-33.7); MCHC 33.5 g/dl (32.0-36.0); MEAN CELL VOLUME 87.5 fl (80-96); MEAN PLT VOLUME 7.5 fl (7.5-11.1); MONO % 6.9 % (3.8-10.2); PLATELET COUNT 303 10^3/uL (134-434); RBC 4.54 M/mm3 (3.60-5.2); RDW 13.6 % (11.6-15.6); WHITE BLOOD COUNT 8.4 K/mm3 (4.0-10.0)
[2024-04-13] MEDS ORDERED: traMADol HCL 50 MG TABLET ONE (21:21)
[2024-04-13] MEDS: traMADol HCL 50 MG TABLET PO ONE (21:22)
[2024-04-13 21:44] LABS: POTASSIUM 3.9 mmol/L (3.5-5.1)
[2024-04-13 21:46] LABS: CALCIUM 9.1 mg/dL (8.5-10.1)
[2024-04-13 21:47] LABS: ALBUMIN 3.8 g/dl (3.4-5.0)
[2024-04-13 21:50] LABS: CREATININE 0.5 mg/dL (0.55-1.3)
[2024-04-13 21:51] LABS: BILIRUBIN,TOTAL 0.3 mg/dL (0.2-1)
[2024-04-13] MEDS ORDERED: DOCUSATE SODIUM 100 MG CAPSULE (FP) PO PRN (23:07)
[2024-04-14 07:47] LABS: BASO % 0.9 % (0-2.0); EOS % 8.2 % (0-4.5); HEMATOCRIT 36.7 % (32.4-45.2); HEMOGLOBIN 12.5 GM/dL (10.7-15.3); LYMPH % 34.1 % (8-40); MCHC 34.1 g/dl (32.0-36.0); MEAN CELL VOLUME 87.9 fl (80-96); MEAN PLT VOLUME 7.6 fl (7.5-11.1); MONO % 6.9 % (3.8-10.2); NEUT % 49.9 % (42.8-82.8); PLATELET COUNT 253 10^3/uL (134-434); RBC 4.17 M/mm3 (3.60-5.2); RDW 13.3 % (11.6-15.6); WHITE BLOOD COUNT 6.4 K/mm3 (4.0-10.0)
[2024-04-14 07:51] LABS: POTASSIUM 3.8 mmol/L (3.5-5.1)
[2024-04-14 07:52] LABS: CALCIUM 8.8 mg/dL (8.5-10.1)
[2024-04-14 07:53] LABS: BLOOD UREA NITROGEN 5.6 mg/dL (7-18)
[2024-04-14 07:56] LABS: CREATININE 0.5 mg/dL (0.55-1.3); PHOSPHOROUS 4.2 mg/dL (2.5-4.9)
[2024-04-14] MEDS ORDERED: traMADol HCL 50 MG TABLET ONE (09:55)
[2024-04-14] MEDS: traMADol HCL 50 MG TABLET PO SCH (10:00)
[2024-04-14 12:13] VITALS: BMI 26.5
[2024-04-16 09:30] VITALS: RESP 18
[2024-04-16] MEDS: ACETAMINOPHEN 500 MG TABLET (FP) PO PRN (11:06)
[2024-04-18 10:27] VITALS: BP 93/76; PULSE 101; TEMP 98.1
== END 2024-04-18 11:51 | disposition home or self-care (01) ==
LOC: JER 16:24 → JERBED 19:06 → J6S 04-14 10:28
PROVIDERS: ADMIT Internal Medicine; ATTEND Internal Medicine
DX: R29.6 Repeated falls (principal); W19.XXXA Unspecified fall, initial encounter; Z91.81 History of falling; Y93.9 Activity, unspecified; Y92.9 Unspecified place or not applicable; G82.20 Paraplegia, unspecified; Z99.3 Dependence on wheelchair; Z88.0 Allergy status to penicillin; Z79.891 Long term (current) use of opiate analgesic
CPT/HCPCS: 36415; 70450-TC; 72125-TC; 80048; 80053; 83735; 84100; 85025; 86850; 86900; 86901; 93005; 93010; 97162-GP; 99285-25; G0378